=== PATIENT | male | born 1995 | race Caucasian/White ===

== ENCOUNTER 2018-04-04 22:57 | Emergency (ER) | payer BC ==
--- NOTE | 2018-04-04 23:04 | ED ---
General Adult HPI - General Chief complaint: Recheck/Abnormal Lab/Rx Stated complaint: DIZZINESS,VOMITING,ENT Time Seen by Provider: 04/04/18 23:04 Source: patient Mode of arrival: ambulatory Limitations: no limitations - History of Present Illness Initial comments: Yosi Kumar is a 23 yo male with no PMH who presents to the ED for evaluation of 4 days of feeling unwell. Patient reports generalized malaise, body aches, subjective fevers, chills, nausea, decreased oral intake, non-productive cough and headache. She reports that his children had runny and stuffy nose with fever last week, he reports that on Tuesday he began to feel unwell. He reports that he has been trying to drink fluids but has had no appetite. He hasn't taken any medications for his symptoms. He came to the ER today concerned about missing work due to his symptoms. - Related Data Home Medications Medication Instructions Recorded Confirmed Dextroamphetamine/Amphetamine 30 mg PO QAM 04/16/17 04/04/18 [Adderall Xr] Ibuprofen [Motrin] 800 mg PO Q8H PRN 04/16/17 04/04/18 Allergies Allergy/AdvReac Type Severity Reaction Status Date / Time meloxicam [From Mobic] Allergy Rash/Hives Verified 04/04/18 23:21 Penicillins Allergy Anaphylaxis Verified 04/04/18 23:21 Review of Systems ROS Statement: Those systems with pertinent positive or pertinent negative responses have been documented in the HPI. ROS Other: All systems not noted in ROS Statement are negative. Constitutional: Reports: fever, chills Eyes: Denies: eye pain ENT: Reports: throat pain Respiratory: Reports: cough. Denies: dyspnea Cardiovascular: Denies: chest pain, palpitations Endocrine: Reports: fatigue Gastrointestinal: Reports: nausea Genitourinary: Denies: urgency, dysuria Musculoskeletal: Reports: myalgia. Denies: back pain Skin: Denies: rash Neurological: Reports: headache Past Medical History Past Medical History: No Reported History History of Any Multi-Drug Resistant Organisms: None Reported Past Surgical History: No Surgical Hx Reported Past Psychological History: ADD/ADHD Smoking Status: Current every day smoker Past Alcohol Use History: None Reported Past Drug Use History: None Reported General Exam - General Exam Comments Initial Comments: Physical Exam GENERAL: Patient is well-developed and well-nourished. Patient is nontoxic and well- hydrated and is in no distress. HENT: Normocephalic, Atraumatic. EYES: PERRL, EOMI PULMONARY: Unlabored respirations. No audible rales rhonchi or wheezing was noted. CARDIOVASCULAR: There is a regular rate and rhythm without any murmurs gallops or rubs. ABDOMEN: Soft and nontender with normal bowel sounds. SKIN: Skin is clear with no lesions or rashes and otherwise unremarkable. : Deferred NEUROLOGIC: Patient is alert and oriented x3. Moving all extremities spontaneously MUSCULOSKELETAL: Normal extremities with adequate strength and full range of motion. No lower extremity swelling or edema. No calf tenderness. PSYCHIATRIC: Normal psychiatric evaluation. Limitations: no limitations Limitations: no limitations Course Vital Signs 04/04/18 04/05/18 22:59 01:16 Temperature 98.7 F 98.3 F Pulse Rate 107 H 86 Respiratory 18 16 Rate Blood Pressure 137/80 133/83 O2 Sat by Pulse 99 100 Oximetry Medical Decision Making - Medical Decision Making Patient was seen and evaluated, history was obtained from the patient Patient with multiple complaints, generalized malaise, body aches for a few days duration, appears dehydrated Patient has not ever received her influenza vaccination due to history of his father having a serious ALLERGY to such. Labs and x-ray were ordered Labs with mildly elevated creatinine kinase, no other significant abnormalities appreciated Chest x-ray with no evidence of pneumonia Influenza was negative At this point I suspect the patient has a viral illness, I discussed this with him, I discussed the importance of oral rehydration therapy, alternating Tylenol and Motrin for pain and fever management. Return parameters were discussed and the patient was discharged home in stable condition. - Lab Data Result diagrams: 04/05/18 00:16 04/05/18 00:16 Lab Results 04/05/18 04/05/18 04/05/18 Range/Units 00:16 00:16 00:20 WBC 10.6 (3.8-10.6) k/uL RBC 5.54 (4.30-5.90) m/uL Hgb 16.5 (13.0-17.5) gm/dL Hct 48.7 (39.0-53.0) % MCV 87.9 (80.0-100.0) fL MCH 29.8 (25.0-35.0) pg MCHC 33.9 (31.0-37.0) g/dL RDW 13.3 (11.5-15.5) % Plt Count 274 (150-450) k/uL Neutrophils % 72 % Lymphocytes % 18 % Monocytes % 6 % Eosinophils % 3 % Basophils % 0 % Neutrophils # 7.7 (1.3-7.7) k/uL Lymphocytes # 1.9 (1.0-4.8) k/uL Monocytes # 0.7 (0-1.0) k/uL Eosinophils # 0.3 (0-0.7) k/uL Basophils # 0.0 (0-0.2) k/uL Sodium 140 (137-145) mmol/L Potassium 4.6 (3.5-5.1) mmol/L Chloride 103 (98-107) mmol/L Carbon Dioxide 24 (22-30) mmol/L Anion Gap 13 mmol/L BUN 12 (9-20) mg/dL Creatinine 0.77 (0.66-1.25) mg/dL Est GFR (CKD-EPI)AfAm >90 (>60 ml/min/1.73 sqM) Est GFR (CKD-EPI)NonAf >90 (>60 ml/min/1.73 sqM) Glucose 100 H (74-99) mg/dL Calcium 10.2 (8.4-10.2) mg/dL Total Bilirubin 0.6 (0.2-1.3) mg/dL AST 42 (17-59) U/L ALT 79 H (21-72) U/L Alkaline Phosphatase 106 (38-126) U/L Creatine Kinase 235 H (55-170) U/L Total Protein 8.5 H (6.3-8.2) g/dL Albumin 5.0 (3.5-5.0) g/dL Urine Color Yellow Urine Appearance Clear (Clear) Urine pH 6.0 (5.0-8.0) Ur Specific [place] 1.023 (1.001-1.035) Urine Protein Trace H (Negative) Urine Glucose (UA) Negative (Negative) Urine Ketones Negative (Negative) Urine Blood Trace H (Negative) Urine Nitrite Negative (Negative) Urine Bilirubin Negative (Negative) Urine Urobilinogen <2.0 (<2.0) mg/dL Ur Leukocyte Esterase Negative (Negative) Urine RBC 4 (0-5) /hpf Urine WBC 2 (0-5) /hpf Urine Mucus Many H (None) /hpf Influenza Type A RNA (Not Detectd) Influenza Type B (PCR) (Not Detectd) 04/05/18 Range/Units 00:20 WBC (3.8-10.6) k/uL RBC (4.30-5.90) m/uL Hgb (13.0-17.5) gm/dL Hct (39.0-53.0) % MCV (80.0-100.0) fL MCH (25.0-35.0) pg MCHC (31.0-37.0) g/dL RDW (11.5-15.5) % Plt Count (150-450) k/uL Neutrophils % % Lymphocytes % % Monocytes % % Eosinophils % % Basophils % % Neutrophils # (1.3-7.7) k/uL Lymphocytes # (1.0-4.8) k/uL Monocytes # (0-1.0) k/uL Eosinophils # (0-0.7) k/uL Basophils # (0-0.2) k/uL Sodium (137-145) mmol/L Potassium (3.5-5.1) mmol/L Chloride (98-107) mmol/L Carbon Dioxide (22-30) mmol/L Anion Gap mmol/L BUN (9-20) mg/dL Creatinine (0.66-1.25) mg/dL Est GFR (CKD-EPI)AfAm (>60 ml/min/1.73 sqM) Est GFR (CKD-EPI)NonAf (>60 ml/min/1.73 sqM) Glucose (74-99) mg/dL Calcium (8.4-10.2) mg/dL Total Bilirubin (0.2-1.3) mg/dL AST (17-59) U/L ALT (21-72) U/L Alkaline Phosphatase (38-126) U/L Creatine Kinase (55-170) U/L Total Protein (6.3-8.2) g/dL Albumin (3.5-5.0) g/dL Urine Color Urine Appearance (Clear) Urine pH (5.0-8.0) Ur Specific [place] (1.001-1.035) Urine Protein (Negative) Urine Glucose (UA) (Negative) Urine Ketones (Negative) Urine Blood (Negative) Urine Nitrite (Negative) Urine Bilirubin (Negative) Urine Urobilinogen (<2.0) mg/dL Ur Leukocyte Esterase (Negative) Urine RBC (0-5) /hpf Urine WBC (0-5) /hpf Urine Mucus (None) /hpf Influenza Type A RNA Not Detected (Not Detectd) Influenza Type B (PCR) Not Detected (Not Detectd) Disposition Clinical Impression: Viral illness Disposition: HOME SELF-CARE Condition: Good Instructions: Viral Syndrome (ED) Is patient prescribed a controlled substance at d/c from ED?: No Referrals: Dayanna Meredith DO [Primary Care Provider] - 1-2 days
[2018-04-04] MEDS ORDERED: SODIUM CHLORIDE 0.9% 2,000 ML IV ONE (23:25)
--- NOTE | 2018-04-05 00:07 | XR ---
EXAMINATION TYPE: XR chest 2V DATE OF EXAM: 04/04/2018 COMPARISON: 04/16/2017 HISTORY: Fever and dizziness TECHNIQUE: Frontal and lateral views of the chest are obtained. FINDINGS: Heart and mediastinum are normal. Lungs are clear. Diaphragm is normal. Bony thorax appear s normal. IMPRESSION: Normal chest. No change.
[2018-04-05 00:30] LABS: Basophils % (A) 0 %; Eosinophils # (A) 0.3 k/uL (0-0.7); Eosinophils % (A) 3 %; HCT 48.7 % (39.0-53.0); HGB 16.5 gm/dL (13.0-17.5); Lymphocytes # (A) 1.9 k/uL (1.0-4.8); Lymphocytes % (A) 18 %; MCH 29.8 pg (25.0-35.0); MCHC 33.9 g/dL (31.0-37.0); MCV 87.9 fL (80.0-100.0); Mean Platelet Volume 6.8; Monocytes # (A) 0.7 k/uL (0-1.0); Monocytes % (A) 6 %; Neutrophils # (A) 7.7 k/uL (1.3-7.7); Neutrophils % (A) 72 %; Platelet Count 274 k/uL (150-450); RBC 5.54 m/uL (4.30-5.90); RDW 13.3 % (11.5-15.5); WBC 10.6 k/uL (3.8-10.6)
[2018-04-05 00:38] LABS: Appearance,Urine Clear (Clear); Bilirubin,Urine Negative (Negative); Blood,Urine Trace (Negative); Color,Urine Yellow; Glucose,Urine (UA) Negative (Negative); Ketones,Urine Negative (Negative); Leukocyte Esterase,Urine Negative (Negative); Mucus,Urine Many /hpf; Nitrite,Urine Negative (Negative); Protein,Urine Trace (Negative); RBC,Urine 4 /hpf (0-5); Specific Gravity,Urine 1.023 (1.001-1.035); Urobilinogen,Urine <2.0 mg/dL (<2.0); WBC,Urine 2 /hpf (0-5)
[2018-04-05 00:39] LABS: ALT 79 U/L (21-72); AST 42 U/L (17-59); Alkaline Phosphatase 106 U/L (38-126); Anion Gap 13 mmol/L; Blood Urea Nitrogen 12 mg/dL (9-20); Calcium 10.2 mg/dL (8.4-10.2); Carbon Dioxide 24 mmol/L (22-30); Chloride 103 mmol/L (98-107); Creatine Kinase 235 U/L (55-170); Glucose 100 mg/dL (74-99); Potassium 4.6 mmol/L (3.5-5.1); Sodium 140 mmol/L (137-145); Total Bilirubin 0.6 mg/dL (0.2-1.3); Total Protein 8.5 g/dL (6.3-8.2)
[2018-04-05 01:54] VITALS: BP 138/89; PULSE 98; RESP 18; TEMP 99.9
== END 2018-04-05 01:53 | disposition home or self-care (01) ==
LOC: EC 22:57
DX: B34.9 Viral infection, unspecified (principal); R74.8 Abnormal levels of other serum enzymes; F90.9 Attention-deficit hyperactivity disorder, unspecified type; F17.200 Nicotine dependence, unspecified, uncomplicated; Z88.0 Allergy status to penicillin; Z88.6 Allergy status to analgesic agent; Z79.899 Other long term (current) drug therapy
CPT/HCPCS: 36415; 71046; 80053; 81001; 82550; 85025; 87502; 96360; 99284

== ENCOUNTER 2018-05-08 17:34 | Emergency (ER) | payer BC ==
[2018-05-08 18:25] VITALS: RESP 18
[2018-05-08 18:57] LABS: Basophils # (A) 0.1 k/uL (0-0.2); Basophils % (A) 1 %; Eosinophils # (A) 0.1 k/uL (0-0.7); Eosinophils % (A) 1 %; HGB 16.3 gm/dL (13.0-17.5); Lymphocytes # (A) 3.5 k/uL (1.0-4.8); Lymphocytes % (A) 50 %; MCH 29.6 pg (25.0-35.0); MCHC 33.2 g/dL (31.0-37.0); MCV 89.1 fL (80.0-100.0); Monocytes # (A) 0.3 k/uL (0-1.0); Monocytes % (A) 4 %; Neutrophils # (A) 2.4 k/uL (1.3-7.7); Neutrophils % (A) 35 %; Platelet Count 220 k/uL (150-450); RDW 13.5 % (11.5-15.5); WBC 6.9 k/uL (3.8-10.6)
[2018-05-08 19:05] LABS: Appearance,Urine Clear (Clear); Bilirubin,Urine Negative (Negative); Blood,Urine Negative (Negative); Color,Urine Yellow; Glucose,Urine (UA) Negative (Negative); Ketones,Urine Negative (Negative); Leukocyte Esterase,Urine Negative (Negative); Nitrite,Urine Negative (Negative); PH, Urine 5.5 (5.0-8.0); Protein,Urine Negative (Negative); Specific Gravity,Urine 1.021 (1.001-1.035); Urobilinogen,Urine <2.0 mg/dL (<2.0)
[2018-05-08 19:08] LABS: ALT 205 U/L (21-72); AST 119 U/L (17-59); Albumin 4.5 g/dL (3.5-5.0); Alkaline Phosphatase 211 U/L (38-126); Amylase 94 U/L (30-110); Anion Gap 11 mmol/L; Blood Urea Nitrogen 14 mg/dL (9-20); Calcium 9.6 mg/dL (8.4-10.2); Carbon Dioxide 24 mmol/L (22-30); Chloride 106 mmol/L (98-107); Glucose 99 mg/dL (74-99); Lipase 44 U/L (23-300); Potassium 4.5 mmol/L (3.5-5.1); Sodium 141 mmol/L (137-145); Total Bilirubin 0.6 mg/dL (0.2-1.3); Total Protein 8.1 g/dL (6.3-8.2)
--- NOTE | 2018-05-08 19:16 | XR ---
EXAMINATION TYPE: XR KUB DATE OF EXAM: 05/08/2018 COMPARISON: NONE HISTORY: Abdominal pain TECHNIQUE: 2 views upright FINDINGS: Bowel gas pattern is normal. There is no sign of intestinal obstruction or pneumoperitoneum . Fecal pattern is normal. Lung bases are clear. There are no pathologic calcifications over the kidn eys. IMPRESSION: Nonacute abdomen.
[2018-05-08 19:46] VITALS: BP 158/81; PULSE 112; TEMP 102.1
--- NOTE | 2018-05-08 19:50 | ED ---
Abdominal Pain HPI - General Chief Complaint: Abdominal Pain Stated Complaint: Congestion/blood in urine Time Seen by Provider: 05/08/18 19:16 Source: patient, RN notes reviewed, old records reviewed Mode of arrival: ambulatory Limitations: no limitations - History of Present Illness Initial Comments: This is a 23-year-old male the ER for evaluation. Patient is multiple complaints mainly bilateral at back pain flank pain. Increased cough and congestion with fever. Patient has history of back pain chronic. Patient states the symptoms of been on and off for about a month and usually was seen here in the ER about a month ago for the same. MD Complaint: abdominal pain -: month(s) (1) Location: L flank, R flank Radiation: back Migration to: L flank, R flank, bilateral flank Quality: aching Consistency: constant Improves With: nothing Worsens With: movement Treatments Prior to Arrival: NSAIDs - Related Data Home Medications Medication Instructions Recorded Confirmed Dextroamphetamine/Amphetamine 30 mg PO QAM 04/16/17 05/08/18 [Adderall Xr] Ibuprofen [Motrin] 800 mg PO Q8H PRN 04/16/17 05/08/18 Albuterol Inhaler [Ventolin Hfa 2 puff INHALATION RT-Q6H PRN 05/08/18 05/08/18 Inhaler] Benzonatate [Tessalon Perles] 100 mg PO TID PRN 05/08/18 05/08/18 Allergies Allergy/AdvReac Type Severity Reaction Status Date / Time meloxicam [From Mobic] Allergy Rash/Hives Verified 05/08/18 20:08 Penicillins Allergy Anaphylaxis Verified 05/08/18 20:08 Review of Systems ROS Statement: Those systems with pertinent positive or pertinent negative responses have been documented in the HPI. ROS Other: All systems not noted in ROS Statement are negative. Past Medical History Past Medical History: No Reported History History of Any Multi-Drug Resistant Organisms: None Reported Past Surgical History: No Surgical Hx Reported Past Psychological History: ADD/ADHD Smoking Status: Current every day smoker Past Alcohol Use History: None Reported Past Drug Use History: None Reported General Exam Limitations: no limitations General appearance: alert, in no apparent distress Head exam: Present: atraumatic, normocephalic, normal inspection Eye exam: Present: normal appearance, PERRL, EOMI. Absent: scleral icterus, conjunctival injection, periorbital swelling ENT exam: Present: normal exam, mucous membranes moist Neck exam: Present: normal inspection. Absent: tenderness, meningismus, lymphadenopathy Respiratory exam: Present: normal lung sounds bilaterally. Absent: respiratory distress, wheezes, rales, rhonchi, stridor Cardiovascular Exam: Present: normal rhythm, tachycardia, normal heart sounds. Absent: systolic murmur, diastolic murmur, rubs, gallop, clicks GI/Abdominal exam: Present: soft, normal bowel sounds. Absent: distended, tenderness, guarding, rebound, rigid Extremities exam: Present: normal inspection, full ROM, normal capillary refill. Absent: tenderness, pedal edema, joint swelling, calf tenderness Back exam: Present: normal inspection, paraspinal tenderness (muscle). Absent: tenderness (No midline tenderness) Neurological exam: Present: alert, oriented X3, CN II-XII intact Psychiatric exam: Present: normal affect, normal mood Skin exam: Present: warm, dry, intact, normal color. Absent: rash Course Vital Signs 05/08/18 05/08/18 18:20 19:40 Temperature 100.2 F H 102.1 F H Pulse Rate 107 H 112 H Respiratory 18 18 Rate Blood Pressure 135/88 158/81 O2 Sat by Pulse 97 Oximetry - Reevaluation(s) Reevaluation #1: 05/08/18 20:14 Medical record is reviewed Patient is in no acute discomfort. Patient states his pain is in his back which is pain that he always has Patient states he is improved with fever control and hydration This is with patient possibility of epidural infection, patient returned back pain worsens or fever increase Medical Decision Making - Medical Decision Making 3 male the ER with persistent fever times one month, fever is episodic patient also with back pain cough and congestion, runny nose. Patient is afebrile here in the ER, back pain is not worse and is normal with no neurological deficit no new trauma. Patient denies IV drug abuse, denies recent tattoos, ultrasound x- ray negative. Patient will be discharged home - Lab Data Result diagrams: 05/08/18 18:40 05/08/18 18:40 Lab Results 05/08/18 05/08/18 05/08/18 Range/Units 18:40 18:40 18:40 WBC 6.9 (3.8-10.6) k/uL RBC 5.50 (4.30-5.90) m/uL Hgb 16.3 (13.0-17.5) gm/dL Hct 49.0 (39.0-53.0) % MCV 89.1 (80.0-100.0) fL MCH 29.6 (25.0-35.0) pg MCHC 33.2 (31.0-37.0) g/dL RDW 13.5 (11.5-15.5) % Plt Count 220 (150-450) k/uL Neutrophils % 35 % Lymphocytes % 50 % Monocytes % 4 % Eosinophils % 1 % Basophils % 1 % Neutrophils # 2.4 (1.3-7.7) k/uL Lymphocytes # 3.5 (1.0-4.8) k/uL Monocytes # 0.3 (0-1.0) k/uL Eosinophils # 0.1 (0-0.7) k/uL Basophils # 0.1 (0-0.2) k/uL Sodium 141 (137-145) mmol/L Potassium 4.5 (3.5-5.1) mmol/L Chloride 106 (98-107) mmol/L Carbon Dioxide 24 (22-30) mmol/L Anion Gap 11 mmol/L BUN 14 (9-20) mg/dL Creatinine 0.79 (0.66-1.25) mg/dL Est GFR (CKD-EPI)AfAm >90 (>60 ml/min/1.73 sqM) Est GFR (CKD-EPI)NonAf >90 (>60 ml/min/1.73 sqM) Glucose 99 (74-99) mg/dL Calcium 9.6 (8.4-10.2) mg/dL Total Bilirubin 0.6 (0.2-1.3) mg/dL AST 119 H (17-59) U/L ALT 205 H (21-72) U/L Alkaline Phosphatase 211 H (38-126) U/L Total Protein 8.1 (6.3-8.2) g/dL Albumin 4.5 (3.5-5.0) g/dL Amylase 94 (30-110) U/L Lipase 44 (23-300) U/L Urine Color Yellow Urine Appearance Clear (Clear) Urine pH 5.5 (5.0-8.0) Ur Specific [place] 1.021 (1.001-1.035) Urine Protein Negative (Negative) Urine Glucose (UA) Negative (Negative) Urine Ketones Negative (Negative) Urine Blood Negative (Negative) Urine Nitrite Negative (Negative) Urine Bilirubin Negative (Negative) Urine Urobilinogen <2.0 (<2.0) mg/dL Ur Leukocyte Esterase Negative (Negative) - Radiology Data Radiology results: report reviewed (Ultrasound gallbladder x-ray KUB negative for acute disease), image reviewed Disposition Clinical Impression: Fever, Back pain Disposition: HOME SELF-CARE Condition: Good Instructions: Fever in Adults (ED), Viral Syndrome (ED) Is patient prescribed a controlled substance at d/c from ED?: No Referrals: Dayanna Meredith DO [Primary Care Provider] - 1-2 days
--- NOTE | 2018-05-08 20:52 | US ---
EXAMINATION TYPE: US gallbladder DATE OF EXAM: 05/08/2018 COMPARISON: NONE CLINICAL HISTORY: Pain. Pain EXAM MEASUREMENTS: Liver Length: 18.9 cm Gallbladder Wall: 0.3 cm CBD: 0.3 cm Right Kidney: 11.7 x 4.7 x 4.2 cm Pancreas: Obscured by bowel gas Liver: Increased attenuation Gallbladder: No stones seen Evidence for sonographic Sauceda's sign: No CBD: wnl Right Kidney: wnl IMPRESSION: Negative exam. No gallstones or dilated ducts.
== END 2018-05-08 21:15 | disposition home or self-care (01) ==
LOC: EC 17:34
DX: M54.9 Dorsalgia, unspecified (principal); R50.9 Fever, unspecified; R10.9 Unspecified abdominal pain; F90.9 Attention-deficit hyperactivity disorder, unspecified type; F17.200 Nicotine dependence, unspecified, uncomplicated; Z79.899 Other long term (current) drug therapy; Z88.0 Allergy status to penicillin; Z88.6 Allergy status to analgesic agent
CPT/HCPCS: 36415; 74018; 76705; 80053; 81003; 82150; 83690; 85025; 99285

== ENCOUNTER → 2018-05-16 | Outpatient (CLI) | payer BC ==
--- NOTE | 2018-05-16 09:39 | NM ---
Nuclear medicine hepatobiliary scan. HISTORY: Pain. DOSAGE: The patient received 8 ounces of ensure plus and 4.8 mCi of Technetium 99m Choletec. FINDINGS: There is normal hepatic extraction. The gallbladder is seen by 10 minutes. There is bilia ry to bowel clearance by 25 minutes. Ejection fraction is 83%. IMPRESSION: 1. No diagnostic evidence of cholecystitis. 2. Ejection fraction is 83%.
== END | disposition home or self-care (01) ==
LOC: RADNMMAIN 06:51
PROVIDERS: ATTEND Family Medicine
DX: R11.0 Nausea (principal)
CPT/HCPCS: 78226; A9537

== ENCOUNTER 2018-06-01 08:29 | Day surgery (SDC) | payer BC ==
[2018-05-29 16:23] VITALS: BMI 34.1
[~2018-06-01 08:29] MED LIST: CLINDAMYCIN 900 MG in DEXTROSE 5% IN WATER 50 ML IVPB ONE; DEXAMETHASONE SOD PHOSPHATE 10 MG/ML 1 ML VIAL IV ONE; GENTAMICIN 420 MG in SODIUM CHLORIDE 0.9% 100 ML IVPB ONE; HEPARIN SODIUM,PORCINE 5,000 UNIT/ML 1 ML VIAL SQ ONE; LACTATED RINGERS 1,000 ML IV SCH; LIDOCAINE 1% 20 ML VIAL (10MG/ML) FOR IV START INTRADERMA PRN; MIDAZOLAM (PF) 2 MG/2 ML VIAL IV PRN; ONDANSETRON 4 MG/2 ML VIAL IVP ONE
--- NOTE | 2018-06-01 10:02 | P.GSHP ---
History of Present Illness H&P Date: 06/01/18 Chief Complaint: Right upper quadrant pain This is a 23-year-old male presents today for laparoscopic cholecystectomy. Patient's had complaints of right upper quadrant pain. His recent HIDA scan shows an elevated ejection fraction consistent with biliary hyperkinesia's and chronic cholecystitis. Past Medical History Past Medical History: Osteoarthritis (OA) Additional Past Medical History / Comment(s): STATES ARTHRITIS IN BACK, ? ASTHMA - STATES DR UNSURE., CONSTIPATION, STATES HAVING ABDOMINAL PAIN WITH NAUSEA & VOMITING. History of Any Multi-Drug Resistant Organisms: None Reported Past Surgical History: No Surgical Hx Reported Additional Past Anesthesia/Blood Transfusion Reaction / Comment(s): NO ANESTHESIA HX. Past Psychological History: ADD/ADHD Smoking Status: Current every day smoker Past Alcohol Use History: None Reported Additional Past Alcohol Use History / Comment(s): SMOKES 1/2 PPD. SMOKING SINCE 12 YEARS OLD. Past Drug Use History: None Reported - Past Family History Mother Family Medical History: No Reported History Medications and Allergies Home Medications Medication Instructions Recorded Confirmed Type Dextroamphetamine/Amphetamine 30 mg PO QAM 04/16/17 06/01/18 History [Adderall Xr] Ibuprofen [Motrin] 800 mg PO Q8H PRN 04/16/17 05/29/18 History Ondansetron [Zofran] 4 mg PO Q6HR PRN 05/29/18 05/29/18 History Allergies Allergy/AdvReac Type Severity Reaction Status Date / Time meloxicam [From Mobic] Allergy Rash/Hives Verified 06/01/18 08:41 Penicillins Allergy Anaphylaxis Verified 06/01/18 08:41 Surgical - Exam Vital Signs Temp Pulse Resp BP Pulse Ox 98.0 F 91 16 136/63 97 06/01/18 08:55 06/01/18 08:55 06/01/18 08:55 06/01/18 08:55 06/01/18 08:55 - General well developed, well nourished, no distress - Eyes PERRL - ENT normal pinna - Neck no masses - Respiratory normal expansion - Cardiovascular Rhythm: regular - Abdomen Abdomen: soft, non tender Assessment and Plan Assessment: Right quadrant pain Chronic cholecystitis We'll perform laparoscopic cholecystectomy
[2018-06-01] MEDS ORDERED: BUPIVACAIN-EPI 0.25%-1:200,000 30 ML VIAL SQ ONE (10:22)
[2018-06-01] MEDS ORDERED: fentaNYL (PF) 50 MCG/ML 2 ML AMP ONE (10:27)
[2018-06-01] MEDS ORDERED: LIDOCAINE 1% INJ 10MG/ML (20 ML MDV) ONE (10:27)
[2018-06-01] MEDS ORDERED: NEOSTIGMINE 1 MG/ML 10 ML VIAL ONE (10:27)
[2018-06-01] MEDS ORDERED: MIDAZOLAM 2 MG/2 ML VIAL ONE (10:27)
[2018-06-01] MEDS ORDERED: SUCCINYLCHOLINE CHLORIDE 100 MG/5 ML SYR IV ONE (10:27)
[2018-06-01] MEDS ORDERED: GLYCOPYRROLATE 0.2 MG/ML 2 ML VIAL ONE (10:27)
[2018-06-01] MEDS ORDERED: HYDROmorphone (PF) 1 MG/ML ONE (10:27)
[2018-06-01] MEDS ORDERED: ROCURONIUM BROMIDE 10 MG/ML 10 ML VIAL IV ONE (10:27)
[2018-06-01] MEDS ORDERED: PROPOFOL 10 MG/ML 20 ML VIAL IV ONE (10:27)
[2018-06-01 11:30] VITALS: TEMP 97
[2018-06-01] MEDS: fentaNYL (PF) 50 MCG/ML 2 ML AMP IV PRN ×2 (12:03→12:08)
[2018-06-01 12:29] VITALS: RESP 18
--- NOTE | 2018-06-01 12:35 | P.OP ---
Date of Procedure: 06/01/18 Preoperative Diagnosis: Cholecystitis Postoperative Diagnosis: Cholecystitis Procedure(s) Performed: Laparoscopic cholecystectomy Anesthesia: MELISSA Surgeon: Alexandre Peterson Estimated Blood Loss (ml): 5 Pathology: other (gAll bladder) Condition: stable Disposition: PACU Description of Procedure: The patient was placed on the operating table. The patient received a general endotracheal tube anesthesia. The patients abdomen was prepped and draped in the usual sterile fashion. Through an infraumbilical stab incision, the fascia of the anterior abdominal wall was grasped with a pair of Kochers and then the Veress needle was placed in the peritoneal cavity. Position of the Veress needle was confirmed with positive drop test. The abdomen was then insufflated. After adequate insufflation, the 10 mm trocar was placed in the peritoneal cavity. Following this the laparoscope was placed in the peritoneal cavity. The patient was placed in the head-up, right side up position and then a 5 mm trocar was placed in the right lateral and right subcostal position under direct visualization. A 8 mm trocar was placed in the epigastric position. The gallbladder was grasped in the fundus and infundibulum. Traction on the gallbladder was placed in the lateral and the cephalad positions. The triangle of Calot was visualized.. The cystic duct was bluntly dissected until the union of the cystic duct and common bile duct was seen. The cystic duct was then divided and sealed with the Harmonic scissors. A PDS Endoloop was then placed throughout the cystic duct stump. The cystic artery divided and sealed with the Harmonic scissors. The gallbladder was then removed from the liver bed using Harmonic scissors. The gallbladder was then extracted through the epigastric port site. Operative field was checked for any bleeding spots and Harmonic scissors was used to coagulate the liver bed. The abdomen was irrigated. The trocars were removed. The skin was closed using interrupted 3-0 Vicryl suture. Dermabond dressing were applied. The patient tolerated the procedure well.
[2018-06-01 12:45] VITALS: BP 122/78; PULSE 92
== END 2018-06-01 13:26 | disposition home or self-care (01) ==
LOC: OR 08:29
PROVIDERS: ATTEND Surgery
DX: K81.9 Cholecystitis, unspecified (principal); M19.90 Unspecified osteoarthritis, unspecified site; F90.9 Attention-deficit hyperactivity disorder, unspecified type; F17.210 Nicotine dependence, cigarettes, uncomplicated; Z79.899 Other long term (current) drug therapy; Z88.6 Allergy status to analgesic agent; Z88.0 Allergy status to penicillin; K81.1 Chronic cholecystitis
CPT/HCPCS: 88304; 47562; J2250; J1644; J1100; J2710; J2405; J2001; J3010; J1580; J1170; J0330; J2704

== ENCOUNTER 2020-01-16 09:39 | Emergency (ER) | payer BC, OTHER ==
[2020-01-16 09:48] VITALS: RESP 18
[2020-01-16] MEDS ORDERED: HYDROcodone/APAP 5-325MG 1 EACH TAB PO STA (10:29)
--- NOTE | 2020-01-16 10:31 | ED ---
General Adult HPI - General Chief complaint: Extremity Injury, Lower Stated complaint: IHS - lt thigh injury Time Seen by Provider: 01/16/20 09:50 Source: patient, RN notes reviewed, old records reviewed Mode of arrival: ambulatory Limitations: no limitations - History of Present Illness Initial comments: Patient is a 24-year-old male presents emergency department today for evaluation for concern for left thigh and knee swelling. Patient reports that 2 weeks ago he was hit by a excavator while at work. He states he initially thought up his primary care doctor whom completed x-rays and have the Patient off of work. His work sent him to an urgent care who cleared him to go back to work. Patient states that he was intended to follow-up with orthopedic in given an MRI but has not been able to follow through with this due to Worker's Comp difficulties. He states that he was concerned because he's had worsening pain and with range of motion of the knee and nerve pain with flexing the knee. He states is feels like his skin is stretching. - Related Data Home Medications Medication Instructions Recorded Confirmed Dextroamphetamine/Amphetamine 30 mg PO QAM 04/16/17 01/16/20 [Adderall Xr] Ibuprofen [Motrin] 800 mg PO QAM 04/16/17 01/16/20 HYDROcodone/APAP 7.5-325MG [[place] 1 tab PO QID PRN 01/16/20 01/16/20 7.5-325] Previous Rx's Medication Instructions Recorded HYDROcodone/APAP 5-325MG [[place] 1 tab PO Q6HR PRN #10 tab 01/16/20 5-325] Allergies Allergy/AdvReac Type Severity Reaction Status Date / Time meloxicam [From Mobic] Allergy Rash/Hives Verified 01/16/20 11:08 Penicillins Allergy Anaphylaxis Verified 01/16/20 11:08 Review of Systems ROS Statement: Those systems with pertinent positive or pertinent negative responses have been documented in the HPI. ROS Other: All systems not noted in ROS Statement are negative. Past Medical History Past Medical History: Asthma, Osteoarthritis (OA) Additional Past Medical History / Comment(s): STATES ARTHRITIS IN BACK, CONSTIPA TION History of Any Multi-Drug Resistant Organisms: None Reported Past Surgical History: Cholecystectomy Additional Past Anesthesia/Blood Transfusion Reaction / Comment(s): NO ANESTHESIA HX. Past Psychological History: ADD/ADHD Smoking Status: Current every day smoker Past Alcohol Use History: Occasional Past Drug Use History: Marijuana - Past Family History Mother Family Medical History: No Reported History General Exam - General Exam Comments Initial Comments: This is a 24-year-old male. Alert and oriented 3. No significant distress. Limitations: no limitations General appearance: alert, in no apparent distress Head exam: Present: atraumatic, normocephalic, normal inspection Eye exam: Present: normal appearance, PERRL, EOMI. Absent: scleral icterus, conjunctival injection, periorbital swelling ENT exam: Present: normal exam, mucous membranes moist Neck exam: Present: normal inspection. Absent: tenderness, meningismus, lymphadenopathy Respiratory exam: Present: normal lung sounds bilaterally. Absent: respiratory distress, wheezes, rales, rhonchi, stridor Cardiovascular Exam: Present: regular rate, normal rhythm, normal heart sounds. Absent: systolic murmur, diastolic murmur, rubs, gallop, clicks GI/Abdominal exam: Present: soft, normal bowel sounds. Absent: distended, tenderness, guarding, rebound, rigid Extremities exam: Present: normal inspection, full ROM, normal capillary refill. Absent: tenderness, pedal edema, joint swelling, calf tenderness Left Upper Leg exam: Present: swelling (over distal quadracep ). Absent: normal inspection, full ROM Knee exam: Present: tenderness. Absent: normal inspection Lower Leg exam: Present: normal inspection, full ROM Foot/Toe exam: Present: normal inspection Neurovascular tendon exam: Present: no vascular compromise Back exam: Present: normal inspection Neurological exam: Present: alert, oriented X3, CN II-XII intact Psychiatric exam: Present: normal affect, normal mood Skin exam: Present: warm, dry, intact, normal color. Absent: rash Course Vital Signs 01/16/20 01/16/20 09:46 11:34 Temperature 99.3 F 97.8 F Pulse Rate 113 H 91 Respiratory 18 18 Rate Blood Pressure 163/98 141/95 O2 Sat by Pulse 98 99 Oximetry Medical Decision Making - Medical Decision Making Patient is a 24-year-old male presents for short stay with left thigh and knee swelling. Patient reports that he was hit by an excavator work 2 weeks ago. He had x-rays at PCPs office was reportedly normal. He reports he is able bear weight but when he has his leg down the swelling seems to be more painful and intense. Patient has normal pulses distally. He reports significant pain with range of motion of the knee. Patient had a computed tomography scan with contrast of the knee. It shows evidence of a significant hematoma over the anterior aspect of the thigh. No evidence of fractures. There is also evidence of a 6.2 bone lesion which was most likely an chondroma. I discussed the Patient needs follow-up with orthopedic for further clearance and possible biopsy for the small lesion. Patient be discharged at this time with a short course of pain medication. Advise close follow-up with or so for further clearance back to work. Given a note until that time. Patient is given a knee immobilizer and stated that this is too uncomfortable to wear. Advised to use it while at home. - Lab Data Result diagrams: 01/16/20 10:44 01/16/20 10:44 Lab Results 01/16/20 01/16/20 01/16/20 Range/Units 10:44 10:44 10:44 WBC 6.7 (3.8-10.6) k/uL RBC 5.23 (4.30-5.90) m/uL Hgb 15.5 (13.0-17.5) gm/dL Hct 46.9 (39.0-53.0) % MCV 89.8 (80.0-100.0) fL MCH 29.6 (25.0-35.0) pg MCHC 33.0 (31.0-37.0) g/dL RDW 13.1 (11.5-15.5) % Plt Count 309 (150-450) k/uL Neutrophils % 48 % Lymphocytes % 41 % Monocytes % 6 % Eosinophils % 3 % Basophils % 1 % Neutrophils # 3.2 (1.3-7.7) k/uL Lymphocytes # 2.7 (1.0-4.8) k/uL Monocytes # 0.4 (0-1.0) k/uL Eosinophils # 0.2 (0-0.7) k/uL Basophils # 0.0 (0-0.2) k/uL PT 9.8 (9.0-12.0) sec INR 0.9 (<1.2) APTT 24.3 (22.0-30.0) sec Sodium 139 (137-145) mmol/L Potassium 4.7 (3.5-5.1) mmol/L Chloride 107 (98-107) mmol/L Carbon Dioxide 23 (22-30) mmol/L Anion Gap 9 mmol/L BUN 13 (9-20) mg/dL Creatinine 0.84 (0.66-1.25) mg/dL Est GFR (CKD-EPI)AfAm >90 (>60 ml/min/1.73 sqM) Est GFR (CKD-EPI)NonAf >90 (>60 ml/min/1.73 sqM) Glucose 110 H (74-99) mg/dL Calcium 10.3 H (8.4-10.2) mg/dL Total Bilirubin 0.4 (0.2-1.3) mg/dL AST 49 (17-59) U/L ALT 99 H (4-49) U/L Alkaline Phosphatase 85 (38-126) U/L Total Protein 7.6 (6.3-8.2) g/dL Albumin 4.8 (3.5-5.0) g/dL - Radiology Data Radiology results: report reviewed CC knee with contrast shows a thin walled fluid collection anterior distal femoral level presumed related to recent injury. No acute fracture dislocation. No intramuscular vascular injury noted. There is a 6. fourth distal femoral diaphyseal chondroid lesion fever nonaggressive etiology such as endocrine neuroma however due to size more aggressive etiologies such chondrosarcoma is not entirely excluded. Follow up advised espiecial if pat has pain not related to trauma to this level. Disposition Clinical Impression: Thigh hematoma, Lesion of femur Disposition: HOME SELF-CARE Condition: Good Instructions (If sedation given, give patient instructions): Hematoma (ED) Additional Instructions: Please use medication as discussed. Follow up with orthopedic tomorrow. Please return to the emergency room if your symptoms increase or worsen or for any other concerns. Prescriptions: HYDROcodone/APAP 5-325MG [[place] 5-325] 1 tab PO Q6HR PRN #10 tab PRN Reason: Pain Is patient prescribed a controlled substance at d/c from ED?: Yes If prescribed controlled substance>3 days was MAPS reviewed?: Prescribed <3 Days If opioid is for acute pain is fill amount 7 days or less?: Yes If Rx opioid, was Start Talking consent form obtained?: Yes Referrals: Dayanna Meredith DO [Primary Care Provider] - 1-2 days Gamal Jasso DO [Doctor of Osteopathic Medicine] - 1-2 days Time of Disposition: 12:02
[2020-01-16 11:07] LABS: Basophils % (A) 1 %; Eosinophils # (A) 0.2 k/uL (0-0.7); Eosinophils % (A) 3 %; HCT 46.9 % (39.0-53.0); HGB 15.5 gm/dL (13.0-17.5); Lymphocytes # (A) 2.7 k/uL (1.0-4.8); Lymphocytes % (A) 41 %; MCH 29.6 pg (25.0-35.0); MCV 89.8 fL (80.0-100.0); Mean Platelet Volume 7.4; Monocytes # (A) 0.4 k/uL (0-1.0); Monocytes % (A) 6 %; Neutrophils # (A) 3.2 k/uL (1.3-7.7); Neutrophils % (A) 48 %; Platelet Count 309 k/uL (150-450); RBC 5.23 m/uL (4.30-5.90); RDW 13.1 % (11.5-15.5); WBC 6.7 k/uL (3.8-10.6)
[2020-01-16 11:15] LABS: ALT 99 U/L (4-49); AST 49 U/L (17-59); African American GFR (CKD) >90 (>60 ml/min/1.73 sqM); Albumin 4.8 g/dL (3.5-5.0); Alkaline Phosphatase 85 U/L (38-126); Anion Gap 9 mmol/L; Blood Urea Nitrogen 13 mg/dL (9-20); Calcium 10.3 mg/dL (8.4-10.2); Carbon Dioxide 23 mmol/L (22-30); Chloride 107 mmol/L (98-107); Glucose 110 mg/dL (74-99); Non-African American GFR(CKD) >90 (>60 ml/min/1.73 sqM); Potassium 4.7 mmol/L (3.5-5.1); Sodium 139 mmol/L (137-145); Total Bilirubin 0.4 mg/dL (0.2-1.3); Total Protein 7.6 g/dL (6.3-8.2)
--- NOTE | 2020-01-16 11:22 | CT ---
EXAMINATION TYPE: CT knee LT w con DATE OF EXAM: 01/16/2020 COMPARISON: None. HISTORY: Left distal femur injury and hematoma. Persistent pain and swelling after recent injury. CT DLP: 309.7 mGycm Automated exposure control for dose reduction was used. CONTRAST: Performed with IV Contrast, patient injected with 100ml mL of Isovue 300. FINDINGS: No acute fracture or dislocation in the left knee. Tricompartment joint spaces are preserved. No significant joint effusion. No popliteal cyst. Patency of the distal superficial femoral artery an d popliteal artery with successful visualization of bifurcation and trifurcation. No injury. There is moderate superficial infrapatellar ill-defined fluid. There is more prominent thin-walled fl uid collection in the superior prepatellar space measuring roughly 11 to 12 cm transversely axial tangela ge 60. Craniocaudal length roughly 16 16 cm sagittal image 31. All fluid is superficial to the anteri or muscles. There is some more mild to moderate ill-defined surrounding fluid noted. Fluid more promi nent medial to the midline. Within the distal femoral diaphysis there is an oval 6.4 cm intramedullary lesion with calcifications along the periphery. No bony destruction or adjacent soft tissue mass. Suspect nonaggressive etiology such as enchondroma. IMPRESSION: 1. Thin-walled fluid collection anterior distal femoral level presumed related to recent injury. No a cute fracture or dislocation. No intramuscular or vascular injury. 2. There is 6.4 cm distal femoral diaphyseal chondroid lesion favor nonaggressive etiology such as en chondroma however due to size more aggressive etiologies such as chondrosarcoma is not entirely exclu ded. Follow-up advised especially if patient has pain not related to trauma localized to this level.
[2020-01-16 11:29] LABS: INR 0.9 (<1.2); Prothrombin Time 9.8 sec (9.0-12.0)
[2020-01-16 11:30] LABS: Partial Thromboplastin Time 24.3 sec (22.0-30.0)
[2020-01-16 11:37] VITALS: BP 141/95; PULSE 91; TEMP 97.8
[2020-01-16] MEDS ORDERED: ACET/COD 300 MG/30 MG STARTER PACK 6 TAB BTL PO STA (12:12)
== END 2020-01-16 12:20 | disposition home or self-care (01) ==
LOC: EC 09:39
DX: S70.12XA Contusion of left thigh, initial encounter (principal); M89.9 Disorder of bone, unspecified; F90.9 Attention-deficit hyperactivity disorder, unspecified type; M19.90 Unspecified osteoarthritis, unspecified site; F17.200 Nicotine dependence, unspecified, uncomplicated; Z79.899 Other long term (current) drug therapy; Z79.1 Long term (current) use of non-steroidal anti-inflammatories (NSAID); Z88.0 Allergy status to penicillin; Z88.6 Allergy status to analgesic agent; W22.8XXA Striking against or struck by other objects, initial encounter; Y93.89 Activity, other specified; Y92.69 Other specified industrial and construction area as the place of occurrence of the external cause; Y99.0 Civilian activity done for income or pay
CPT/HCPCS: 36415; 80053; 85025; 85610; 85730; 73701; 99284; Q9967

== ENCOUNTER → 2020-03-26 | Outpatient (CLI) | payer OTHER | END | disposition home or self-care (01) | LOC: LABWHC1 10:51 | PROVIDERS: ATTEND Orthopaedic Surgery | DX: S70.12XD Contusion of left thigh, subsequent encounter (principal); M79.652 Pain in left thigh; M25.562 Pain in left knee; M25.462 Effusion, left knee; L76.34 Postprocedural seroma of skin and subcutaneous tissue following other procedure; M89.8X5 Other specified disorders of bone, thigh | CPT/HCPCS: 87070; 87075; 87205 ==

== ENCOUNTER 2020-08-06 19:46 | Emergency (ER) | payer BC, OTHER ==
[2020-08-06] MEDS ORDERED: CLINDAMYCIN 150 MG CAP PO STA (19:56)
[2020-08-06] MEDS ORDERED: ACET/COD 300 MG/30 MG STARTER PACK 6 TAB BTL PO STA (19:56)
[2020-08-06 19:58] VITALS: BP 150/97; PULSE 108; RESP 20; TEMP 98.3
--- NOTE | 2020-08-06 19:58 | ED ---
ENT HPI - General Stated complaint: Face swelling Time Seen by Provider: 08/06/20 19:50 Source: patient, RN notes reviewed Mode of arrival: ambulatory Limitations: no limitations - History of Present Illness Initial comments: 25 year old male presents emergency Department with chief complaint of right- sided facial swelling. Patient states that he's had recurrent dental infections he states he saw dentist yesterday who wanted to pull his molar but states they did not feel comfortable with them. Patient states his been on 2 rounds of antibiotics states most recent and bright was azithromycin. He has not appointment with dentist on Tuesday. Patient denies any difficulty swallowing patient states there is mild pain, pressure feeling on the right side. - Related Data Home Medications Medication Instructions Recorded Confirmed Dextroamphetamine/Amphetamine 30 mg PO QAM 04/16/17 01/16/20 [Adderall Xr] Ibuprofen [Motrin] 800 mg PO QAM 04/16/17 01/16/20 HYDROcodone/APAP 7.5-325MG [[place] 1 tab PO QID PRN 01/16/20 01/16/20 7.5-325] Previous Rx's Medication Instructions Recorded HYDROcodone/APAP 5-325MG [[place] 1 tab PO Q6HR PRN #10 tab 01/16/20 5-325] Clindamycin HCl 300 mg PO Q6HR #40 cap 08/06/20 Allergies Allergy/AdvReac Type Severity Reaction Status Date / Time meloxicam [From Mobic] Allergy Rash/Hives Verified 08/06/20 19:58 Penicillins Allergy Anaphylaxis Verified 08/06/20 19:58 Review of Systems ROS Statement: Those systems with pertinent positive or pertinent negative responses have been documented in the HPI. ROS Other: All systems not noted in ROS Statement are negative. Past Medical History Past Medical History: Asthma, Osteoarthritis (OA) Additional Past Medical History / Comment(s): STATES ARTHRITIS IN BACK, CONSTIPATION History of Any Multi-Drug Resistant Organisms: None Reported Past Surgical History: Cholecystectomy Additional Past Anesthesia/Blood Transfusion Reaction / Comment(s): NO ANESTHESIA HX. Past Psychological History: ADD/ADHD Smoking Status: Current every day smoker Past Alcohol Use History: Occasional Past Drug Use History: Marijuana - Past Family History Mother Family Medical History: No Reported History General Exam General appearance: alert, in no apparent distress Head exam: Present: atraumatic, normocephalic, normal inspection Eye exam: Present: normal appearance, PERRL, EOMI. Absent: scleral icterus, conjunctival injection, periorbital swelling ENT exam: Present: mucous membranes moist, TM's normal bilaterally, normal external ear exam, other (Right mandibular swelling and mild trismus no tripoding). Absent: normal exam (Dental Meghann #[id number]), normal oropharynx Neck exam: Present: normal inspection, full ROM. Absent: tenderness, meningismus, lymphadenopathy Respiratory exam: Present: normal lung sounds bilaterally. Absent: respiratory distress, wheezes, rales, rhonchi, stridor Cardiovascular Exam: Present: regular rate, normal rhythm, normal heart sounds. Absent: systolic murmur, diastolic murmur, rubs, gallop, clicks GI/Abdominal exam: Present: soft, normal bowel sounds. Absent: distended, tenderness, guarding, rebound, rigid Course Vital Signs 08/06/20 19:51 Temperature 98.3 F Pulse Rate 108 H Respiratory 20 Rate Blood Pressure 150/97 O2 Sat by Pulse 97 Oximetry Medical Decision Making - Medical Decision Making 36 over presented for facial swelling. Patient has dental infection. Patient was given clindamycin will be discharged on clindamycin. Patient has a follow- up appointment on Tuesday. Patient will be discharged stable condition. Disposition Clinical Impression: Dental infection, Pain, dental Disposition: HOME SELF-CARE Condition: Stable Instructions (If sedation given, give patient instructions): Toothache (ED) Additional Instructions: Please return to the Emergency Department if symptoms worsen or any other concerns. Prescriptions: Clindamycin HCl 300 mg PO Q6HR #40 cap Is patient prescribed a controlled substance at d/c from ED?: No Referrals: Dayanna Meredith DO [Primary Care Provider] - 1-2 days Time of Disposition: 19:58
== END 2020-08-06 20:09 | disposition home or self-care (01) ==
LOC: EC 19:46
DX: K04.7 Periapical abscess without sinus (principal); M19.09 Primary osteoarthritis, other specified site; F90.9 Attention-deficit hyperactivity disorder, unspecified type; F17.200 Nicotine dependence, unspecified, uncomplicated; Z79.899 Other long term (current) drug therapy; Z79.1 Long term (current) use of non-steroidal anti-inflammatories (NSAID); Z88.0 Allergy status to penicillin; Z88.6 Allergy status to analgesic agent
CPT/HCPCS: 99283

== ENCOUNTER 2020-08-07 02:57 | Emergency (ER) | payer OTHER ==
[2020-08-07 03:03] VITALS: TEMP 99.6
[2020-08-07] MEDS ORDERED: MORPHINE SULFATE 4 MG/ML SYRINGE IV STA (03:27)
[2020-08-07] MEDS ORDERED: SODIUM CHLORIDE 0.9% 1,000 ML IV STA ×2 (03:27)
[2020-08-07] MEDS ORDERED: DEXAMETHASONE SOD PHOSPHATE 10 MG/ML 1 ML VIAL IV STA (03:28)
[2020-08-07] MEDS ORDERED: KETOROLAC 15 MG/ML 1 ML VIAL IVP STA (03:28)
[2020-08-07] MEDS ORDERED: CLINDAMYCIN 900 MG in DEXTROSE 5% IN WATER 50 ML IVPB STA ×2 (03:28)
--- NOTE | 2020-08-07 03:41 | ED ---
Recheck HPI - General Chief Complaint: Dental/Oral Stated Complaint: Dental Pain Time Seen by Provider: 08/07/20 03:11 Source: patient, family, RN notes reviewed, old records reviewed Mode of arrival: ambulatory Limitations: no limitations - History of Present Illness Initial Comments: This is a 25-year-old male DF for evaluation of dental pain. Patient has history of dental caries seen in ER prior for evaluation. Patient concern for recent development of significant swelling of the right side of his face. No shortness of breath no other complaints no fever patient does have point with dentist for tooth removal MD Complaint: other (Significant swelling or face was started tonight) -: days(s) Returns Today for: persistent/worsening pain related to initial visit Symptoms Since Prior Visit: worsening pain (Worsening swelling) Context: other (Evaluation for significant swelling of recent diagnosis tooth infection) Associated Symptoms: none Treatments Prior to Arrival: other medications, Given Antibiotics on - Related Data Home Medications Medication Instructions Recorded Confirmed Dextroamphetamine/Amphetamine 30 mg PO DAILY 08/13/20 08/13/20 [Dextroamphetamine/Amphetamine ER 30 mg Cap] Previous Rx's Medication Instructions Recorded cefTRIAXone [Rocephin] 2 gm IVPB Q24H #10 bag 08/13/20 metroNIDAZOLE [Flagyl] 500 mg PO TID #30 tab 08/13/20 HYDROcodone/APAP 7.5-325MG [[place] 2 each PO Q6H PRN #12 tab 08/14/20 7.5-325] Ibuprofen [Motrin] 800 mg PO TID PRN #30 tab 08/14/20 Allergies Allergy/AdvReac Type Severity Reaction Status Date / Time meloxicam [From Mobic] Allergy Rash/Hives Verified 08/08/20 18:23 Penicillins Allergy Anaphylaxis Verified 08/08/20 18:23 Review of Systems ROS Statement: Those systems with pertinent positive or pertinent negative responses have been documented in the HPI. ROS Other: All systems not noted in ROS Statement are negative. Past Medical History Past Medical History: Asthma, Osteoarthritis (OA) Additional Past Medical History / Comment(s): STATES ARTHRITIS IN BACK, CONSTIPATION History of Any Multi-Drug Resistant Organisms: None Reported Past Surgical History: Cholecystectomy Additional Past Anesthesia/Blood Transfusion Reaction / Comment(s): NO ANESTHESIA HX. Past Psychological History: ADD/ADHD Smoking Status: Current every day smoker Past Alcohol Use History: Occasional Past Drug Use History: Marijuana - Past Family History Mother Family Medical History: No Reported History General Exam Limitations: no limitations General appearance: alert, in no apparent distress Head exam: Present: atraumatic, normocephalic, normal inspection, other (Patient does have significant swelling of the right side) Eye exam: Present: normal appearance, PERRL, EOMI. Absent: scleral icterus, conjunctival injection, periorbital swelling ENT exam: Present: normal exam, mucous membranes moist Neck exam: Present: normal inspection. Absent: tenderness, meningismus, lym phadenopathy Respiratory exam: Present: normal lung sounds bilaterally. Absent: respiratory distress, wheezes, rales, rhonchi, stridor Cardiovascular Exam: Present: regular rate, normal rhythm, normal heart sounds. Absent: systolic murmur, diastolic murmur, rubs, gallop, clicks GI/Abdominal exam: Present: soft, normal bowel sounds. Absent: distended, tenderness, guarding, rebound, rigid Extremities exam: Present: normal inspection, full ROM, normal capillary refill. Absent: tenderness, pedal edema, joint swelling, calf tenderness Back exam: Present: normal inspection Neurological exam: Present: alert, oriented X3, CN II-XII intact Psychiatric exam: Present: normal affect, normal mood Skin exam: Present: warm, dry, intact, normal color. Absent: rash Course Vital Signs 08/07/20 08/07/20 02:58 05:30 Temperature 99.6 F Pulse Rate 111 H 98 Respiratory 24 18 Rate Blood Pressure 132/85 130/83 O2 Sat by Pulse 97 97 Oximetry - Reevaluation(s) Reevaluation #1: Medical record is reviewed Patient has improved symptoms here in the ER Patient feels better Patient family informed results questions are answered Patient feels good for discharge Medical Decision Making - Medical Decision Making Lasix male history of recurrent or worsening dental abscess. Patient continue follow-up, continue antibiotics and symptom management. - Lab Data Result diagrams: 08/07/20 03:50 08/07/20 03:50 Lab Results 08/07/20 08/07/20 Range/Units 03:50 03:50 WBC 11.2 H (3.8-10.6) k/uL RBC 5.19 (4.30-5.90) m/uL Hgb 15.5 (13.0-17.5) gm/dL Hct 44.7 (39.0-53.0) % MCV 86.1 (80.0-100.0) fL MCH 29.9 (25.0-35.0) pg MCHC 34.7 (31.0-37.0) g/dL RDW 12.8 (11.5-15.5) % Plt Count 304 (150-450) k/uL MPV 7.6 Neutrophils % 74 % Lymphocytes % 18 % Monocytes % 5 % Eosinophils % 1 % Basophils % 0 % Neutrophils # 8.4 H (1.3-7.7) k/uL Lymphocytes # 2.1 (1.0-4.8) k/uL Monocytes # 0.6 (0-1.0) k/uL Eosinophils # 0.2 (0-0.7) k/uL Basophils # 0.0 (0-0.2) k/uL Sodium 138 (137-145) mmol/L Potassium 4.6 (3.5-5.1) mmol/L Chloride 103 (98-107) mmol/L Carbon Dioxide 23 (22-30) mmol/L Anion Gap 12 mmol/L BUN 17 (9-20) mg/dL Creatinine 0.75 (0.66-1.25) mg/dL Est GFR (CKD-EPI)AfAm >90 (>60 ml/min/1.73 sqM) Est GFR (CKD-EPI)NonAf >90 (>60 ml/min/1.73 sqM) Glucose 121 H (74-99) mg/dL Calcium 9.8 (8.4-10.2) mg/dL Phosphorus 3.2 (2.5-4.5) mg/dL Magnesium 1.8 (1.6-2.3) mg/dL Total Bilirubin 0.8 (0.2-1.3) mg/dL AST 50 (17-59) U/L ALT 105 H (4-49) U/L Alkaline Phosphatase 111 (38-126) U/L Total Protein 8.1 (6.3-8.2) g/dL Albumin 4.9 (3.5-5.0) g/dL - Radiology Data Radiology results: report reviewed (CT does show dental abscess with surrounding inflammation), image reviewed Disposition Clinical Impression: Dental infection, Pain, dental, Dental abscess Disposition: HOME SELF-CARE Condition: Good Instructions (If sedation given, give patient instructions): Dental Abscess (ED), Toothache (ED) Is patient prescribed a controlled substance at d/c from ED?: No Referrals: Dayanna Meredith DO [Primary Care Provider] - 1-2 days
[2020-08-07 04:49] LABS: Basophils % (A) 0 %; Eosinophils # (A) 0.2 k/uL (0-0.7); Eosinophils % (A) 1 %; HCT 44.7 % (39.0-53.0); HGB 15.5 gm/dL (13.0-17.5); Lymphocytes # (A) 2.1 k/uL (1.0-4.8); Lymphocytes % (A) 18 %; MCH 29.9 pg (25.0-35.0); MCHC 34.7 g/dL (31.0-37.0); MCV 86.1 fL (80.0-100.0); Mean Platelet Volume 7.6; Monocytes # (A) 0.6 k/uL (0-1.0); Monocytes % (A) 5 %; Neutrophils # (A) 8.4 k/uL (1.3-7.7); Neutrophils % (A) 74 %; Platelet Count 304 k/uL (150-450); RBC 5.19 m/uL (4.30-5.90); RDW 12.8 % (11.5-15.5); WBC 11.2 k/uL (3.8-10.6)
--- NOTE | 2020-08-07 04:55 | CT ---
EXAM: CT Neck With Intravenous Contrast CLINICAL HISTORY: ITS.REASON CT Reason: abscess TECHNIQUE: Axial computed tomography images of the neck with intravenous contrast. CTDI is 19.441 mGy and DLP is 712 mGy-cm. This CT exam was performed using one or more of the following dose reduction techniques: automated exposure control, adjustment of the mA and/or kV according to patient size, and/or use of iterative reconstruction technique. COMPARISON: No relevant prior studies available. FINDINGS: Oropharynx: No significant tonsillar enlargement. No peritonsillar abscess. Hypopharynx: Unremarkable. Larynx: Normal epiglottis. Trachea: Unremarkable. Retropharyngeal space: Unremarkable. Submandibular/parotid glands: Glands are normal in size. Thyroid: No nodules. Bones/joints: No acute fracture. Periapical lucency involving the right maxillary canine. Soft tissues: Significant soft tissue swelling in the submental and right more than left submandibular region and right lower face. This process extends into the lower deep neck space to the level of the thyroid glands. Vasculature: Unremarkable. Lymph nodes: Enlarged lymph nodes. Sinuses: Unremarkable. No acute sinusitis. Mastoid air cells: Unremarkable. No mastoid effusion. Lung apices: Unremarkable. Pulmonary arteries dilated to 3.2 cm. IMPRESSION: 1. Significant inflammation and swelling in the right lower face/neck involving the submental/right more than left submandibular regions. This process extends into the lower deep neck space to the level of the thyroid glands. Likely infectious process. No abscess. No airway compromise. 2. Dilated pulmonary artery, correlate with pulmonary arterial hypertension. 3. 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 No associated abscess. <MYCVCSECTION> Communications: 08/07/20 04:52 Call Doctor Regarding Above results, called Dr. Adhikari on 08/07 04:52 (-05:00)
[2020-08-07 05:11] LABS: ALT 105 U/L (4-49); AST 50 U/L (17-59); African American GFR (CKD) >90 (>60 ml/min/1.73 sqM); Albumin 4.9 g/dL (3.5-5.0); Alkaline Phosphatase 111 U/L (38-126); Anion Gap 12 mmol/L; Blood Urea Nitrogen 17 mg/dL (9-20); Calcium 9.8 mg/dL (8.4-10.2); Carbon Dioxide 23 mmol/L (22-30); Chloride 103 mmol/L (98-107); Glucose 121 mg/dL (74-99); Magnesium 1.8 mg/dL (1.6-2.3); Non-African American GFR(CKD) >90 (>60 ml/min/1.73 sqM); Phosphorus 3.2 mg/dL (2.5-4.5); Potassium 4.6 mmol/L (3.5-5.1); Sodium 138 mmol/L (137-145); Total Bilirubin 0.8 mg/dL (0.2-1.3); Total Protein 8.1 g/dL (6.3-8.2)
[2020-08-07 05:34] VITALS: BP 130/83; PULSE 98; RESP 18
== END 2020-08-07 05:34 | disposition home or self-care (01) ==
LOC: EC 02:57
DX: K04.7 Periapical abscess without sinus (principal); F90.9 Attention-deficit hyperactivity disorder, unspecified type; F17.200 Nicotine dependence, unspecified, uncomplicated; Z79.899 Other long term (current) drug therapy; Z88.6 Allergy status to analgesic agent; Z88.0 Allergy status to penicillin
CPT/HCPCS: 99284; 96365; 96375 ×2; 96361; 36415; 80053; 83735; 84100; 85025; 70491; J1100; J1885; Q9967

== ENCOUNTER 2020-08-08 18:14 | Inpatient (IN) | payer OTHER ==
[2020-08-08] MEDS ORDERED: KETOROLAC 15 MG/ML 1 ML VIAL IVP STA (18:55)
[2020-08-08] MEDS ORDERED: HYDROmorphone 0.5 MG/0.5 ML SYRINGE IVP STA (18:57)
[2020-08-08] MEDS ORDERED: CLINDAMYCIN 900 MG in DEXTROSE 5% IN WATER 50 ML IVPB STA ×2 (18:59)
[2020-08-08] MEDS ORDERED: cefTRIAXone IN SWFI 1,000 MG/10 ML SYRINGE IVP STA (19:02)
--- NOTE | 2020-08-08 19:05 | ED ---
General Adult HPI - General Chief complaint: Dental/Oral Stated complaint: Tooth abcess, swollen mouth Time Seen by Provider: 08/08/20 18:20 Source: patient, RN notes reviewed, old records reviewed Mode of arrival: ambulatory Limitations: no limitations - History of Present Illness Initial comments: This is a 25 her old male comes in complaining of facial swelling on the right side of his face under his jaw. Patient states it started approximate month ago when he broke molar. Patient states he been in and out of his tetanus office they recently to start him on clindamycin on Tuesday but the symptoms have worsened. Patient states is difficult for him to open up his mouth fully anymore and the pain on the jaw line and underneath the jaw on the right is significant. Patient denies any fevers. Patient denies any chest pain difficult breathing shortness of breath. Patient denies any difficulty swallowing. - Related Data Home Medications Medication Instructions Recorded Confirmed Dextroamphetamine/Amphetamine 30 mg PO QAM 04/16/17 01/16/20 [Adderall Xr] Ibuprofen [Motrin] 800 mg PO QAM 04/16/17 01/16/20 HYDROcodone/APAP 7.5-325MG [[place] 1 tab PO QID PRN 01/16/20 01/16/20 7.5-325] Previous Rx's Medication Instructions Recorded HYDROcodone/APAP 5-325MG [[place] 1 tab PO Q6HR PRN #10 tab 01/16/20 5-325] Clindamycin HCl 300 mg PO Q6HR #40 cap 08/06/20 Allergies Allergy/AdvReac Type Severity Reaction Status Date / Time meloxicam [From Mobic] Allergy Rash/Hives Verified 08/08/20 18:23 Penicillins Allergy Anaphylaxis Verified 08/08/20 18:23 Review of Systems ROS Statement: Those systems with pertinent positive or pertinent negative responses have been documented in the HPI. ROS Other: All systems not noted in ROS Statement are negative. Past Medical History Past Medical History: Asthma, Osteoarthritis (OA) Additional Past Medical History / Comment(s): STATES ARTHRITIS IN BACK, CONSTIPATION History of Any Multi-Drug Resistant Organisms: None Reported Past Surgical History: Cholecystectomy Additional Past Anesthesia/Blood Transfusion Reaction / Comment(s): NO ANESTHESIA HX. Past Psychological History: ADD/ADHD Smoking Status: Current every day smoker Past Alcohol Use History: Occasional Past Drug Use History: Marijuana - Past Family History Mother Family Medical History: No Reported History General Exam - General Exam Comments Initial Comments: GENERAL: Patient is well-developed and well-nourished. Patient is nontoxic and well- hydrated and is in moderate distress. ENT: Patient has significant right side of his face swelling in the cheek and very tense swelling under the jaw particularly the right aspect of the submandibular space. Patient is only able to open his mouth such that his teeth are approximately 2 cm apart. EYES: The sclera were anicteric and conjunctiva were pink and moist. Extraocular movements were intact and pupils were equal round and reactive to light. Eyelids were unremarkable. PULMONARY: Unlabored respirations. Good breath sounds bilaterally. No audible rales rhonchi or wheezing was noted. CARDIOVASCULAR: There is a regular rate and rhythm without any murmurs gallops or rubs. ABDOMEN: Soft and nontender with normal bowel sounds. SKIN: Skin is clear with no lesions or rashes and otherwise unremarkable. NEUROLOGIC: Patient is alert and oriented x3. Cranial nerves II through XII are grossly intact. Motor and sensory are also intact. Normal speech, volume and content. Symmetrical smile. MUSCULOSKELETAL: Normal extremities with adequate strength and full range of motion. LYMPHATICS: No significant lymphadenopathy is noted PSYCHIATRIC: Normal psychiatric evaluation. Limitations: no limitations Course Vital Signs 08/08/20 08/08/20 18:20 20:01 Temperature 98.7 F 99.2 F Pulse Rate 101 H 96 Respiratory 22 18 Rate Blood Pressure 105/102 135/81 O2 Sat by Pulse 99 96 Oximetry Medical Decision Making - Medical Decision Making computed tomography scan shows a submandibular abscess with surrounding inflammation. I started the patient on 2 g Rocephin and clindamycin. - Lab Data Result diagrams: 08/08/20 19:09 08/08/20 19:09 Lab Results 08/08/20 08/08/20 08/08/20 Range/Units 19:09 19:09 19:09 WBC 12.5 H (3.8-10.6) k/uL RBC 5.13 (4.30-5.90) m/uL Hgb 14.7 (13.0-17.5) gm/dL Hct 44.8 (39.0-53.0) % MCV 87.3 (80.0-100.0) fL MCH 28.7 (25.0-35.0) pg MCHC 32.9 (31.0-37.0) g/dL RDW 12.9 (11.5-15.5) % Plt Count 299 (150-450) k/uL MPV 7.8 Neutrophils % 73 % Lymphocytes % 19 % Monocytes % 6 % Eosinophils % 2 % Basophils % 1 % Neutrophils # 9.0 H (1.3-7.7) k/uL Lymphocytes # 2.4 (1.0-4.8) k/uL Monocytes # 0.7 (0-1.0) k/uL Eosinophils # 0.2 (0-0.7) k/uL Basophils # 0.1 (0-0.2) k/uL Sodium 139 (137-145) mmol/L Potassium 4.9 (3.5-5.1) mmol/L Chloride 104 (98-107) mmol/L Carbon Dioxide 24 (22-30) mmol/L Anion Gap 11 mmol/L BUN 13 (9-20) mg/dL Creatinine 0.61 L (0.66-1.25) mg/dL Est GFR (CKD-EPI)AfAm >90 (>60 ml/min/1.73 sqM) Est GFR (CKD-EPI)NonAf >90 (>60 ml/min/1.73 sqM) Glucose 111 H (74-99) mg/dL Plasma Lactic Acid Rommel 1.9 (0.7-2.0) mmol/L Calcium 9.4 (8.4-10.2) mg/dL Total Bilirubin 0.9 (0.2-1.3) mg/dL AST 157 H (17-59) U/L ALT 252 H (4-49) U/L Alkaline Phosphatase 102 (38-126) U/L Total Protein 7.9 (6.3-8.2) g/dL Albumin 4.7 (3.5-5.0) g/dL Disposition Clinical Impression: Submandibular abscess Disposition: ADMITTED IP TO THIS HOSP Referrals: Dayanna Meredith DO [Primary Care Provider] - 1-2 days Time of Disposition: 20:52
[2020-08-08] MEDS: cefTRIAXone IN SWFI 1,000 MG/10 ML SYRINGE IVP SCH ×2 (19:19→19:25)
[2020-08-08 19:25] LABS: Basophils # (A) 0.1 k/uL (0-0.2); Basophils % (A) 1 %; Eosinophils # (A) 0.2 k/uL (0-0.7); Eosinophils % (A) 2 %; HCT 44.8 % (39.0-53.0); HGB 14.7 gm/dL (13.0-17.5); Lymphocytes # (A) 2.4 k/uL (1.0-4.8); Lymphocytes % (A) 19 %; MCH 28.7 pg (25.0-35.0); MCHC 32.9 g/dL (31.0-37.0); MCV 87.3 fL (80.0-100.0); Mean Platelet Volume 7.8; Monocytes # (A) 0.7 k/uL (0-1.0); Monocytes % (A) 6 %; Neutrophils % (A) 73 %; Platelet Count 299 k/uL (150-450); RBC 5.13 m/uL (4.30-5.90); RDW 12.9 % (11.5-15.5); WBC 12.5 k/uL (3.8-10.6)
[2020-08-08 19:35] LABS: ALT 252 U/L (4-49); AST 157 U/L (17-59); African American GFR (CKD) >90 (>60 ml/min/1.73 sqM); Albumin 4.7 g/dL (3.5-5.0); Alkaline Phosphatase 102 U/L (38-126); Anion Gap 11 mmol/L; Blood Urea Nitrogen 13 mg/dL (9-20); Calcium 9.4 mg/dL (8.4-10.2); Carbon Dioxide 24 mmol/L (22-30); Chloride 104 mmol/L (98-107); Glucose 111 mg/dL (74-99); Non-African American GFR(CKD) >90 (>60 ml/min/1.73 sqM); Sodium 139 mmol/L (137-145); Total Bilirubin 0.9 mg/dL (0.2-1.3); Total Protein 7.9 g/dL (6.3-8.2)
[2020-08-08 19:41] LABS: Potassium 4.9 mmol/L (3.5-5.1)
--- NOTE | 2020-08-08 20:33 | CT ---
EXAMINATION TYPE: CT facial bones w con DATE OF EXAM: 08/08/2020 COMPARISON: CT neck soft tissues 08/07/2020. HISTORY: Right sided facial swelling and pain. CT DLP: 893.2 mGycm Automated exposure control for dose reduction was used. CONTRAST: CT scan of the facial bones is performed with IV Contrast, patient injected with 100ml mL of Isovue 3 00. TECHNIQUE: CT scan of the facial bones is performed following the administration of intravenous contr ast, axial images are obtained, coronal reformatted images are also reviewed. FINDINGS: There is redemonstration of diffuse moderate to marked soft tissue fat stranding centered a bout the mandible. There is involvement of the superficial and deep soft tissues. There is mildly enh ancing confluent edema, difficult to measure but approximately 2.1 x 1.2 cm about the anterior right mandible body. Dental caries are noted. No soft tissue gas. There is mild local mass effect. Visualiz ed airways remain patent. There are multiple mildly enlarged level 1/2 cervical lymph nodes, likely reactive. The visualized piedra bmandibular glands are otherwise intact. No acute osseous abnormality. There is mild mucosal thickeni ng of the ethmoid sinus. The mastoid air cells are adequately aerated. IMPRESSION: Redemonstrated diffuse inflammatory about the right mandibular soft tissues with area of confluent ed bal measuring at least 2.1 cm and highly suggestive of phlegmon/early odontogenic abscess.
[2020-08-08] MEDS ORDERED: HYDROmorphone 1 MG/ML 1 ML SYRINGE IVP STA (20:35)
[2020-08-08] MEDS ORDERED: SODIUM CHLORIDE 0.9% 1,000 ML IV ONE (20:53)
[2020-08-09] MEDS: KETOROLAC 15 MG/ML 1 ML VIAL IVP SCH ×5 (00:10→22:58)
[2020-08-09] MEDS: CLINDAMYCIN 600 MG in DEXTROSE 5% IN WATER 50 ML IVPB SCH ×8 (00:11→22:58)
[2020-08-09] MEDS: ACETAMINOPHEN TAB 325 MG TAB PO PRN ×2 (00:35→07:28)
[2020-08-09] MEDS: NICOTINE 21MG/24HR PATCH TRANSDERM SCH ×2 (00:36→08:56)
[2020-08-09] MEDS: HYDROmorphone 0.5 MG/0.5 ML SYRINGE IVP PRN ×2 (02:19→05:06)
[2020-08-09] MEDS ORDERED: HYDROmorphone 1 MG/ML 1 ML SYRINGE IVP STA (06:01)
[2020-08-09 08:53] LABS: Basophils # (A) 0.03 X 10*3/uL (0.00-0.10); Basophils % (A) 0.2 %; Eosinophils # (A) 0.05 X 10*3/uL (0.04-0.35); Eosinophils % (A) 0.3 %; HCT 41.2 % (39.6-50.0); HGB 13.7 g/dL (13.0-17.0); Lymphocytes # (A) 1.98 X 10*3/uL (0.90-5.00); Lymphocytes % (A) 13.6 %; MCHC 33.3 g/dL (32.0-37.0); MCV 87.1 fL (80.0-97.0); Mean Platelet Volume 9.9 fL (9.5-12.2); Monocytes % (A) 8.9 %; Neutrophils # (A) 11.11 X 10*3/uL (1.80-7.70); Neutrophils % (A) 76.5 %; Platelet Count 299 X 10*3/uL (140-440); RBC 4.73 X 10*6/uL (4.40-5.60); RDW 13.2 % (11.5-14.5); WBC 14.54 X 10*3/uL (4.50-10.00)
[2020-08-09] MEDS: HEPARIN SODIUM,PORCINE 5,000 UNIT/ML 1 ML VIAL SQ SCH ×2 (08:55→20:10)
[2020-08-09] MEDS: FAMOTIDINE 20 MG/2 ML VIAL IV SCH ×2 (08:56→20:10)
[2020-08-09] MEDS: HYDROmorphone 1 MG/ML 1 ML SYRINGE IVP PRN ×2 (09:03→12:40)
[2020-08-09 09:19] LABS: African American GFR (CKD) 142.9 (60.0-200.0); Anion Gap 9.7 mmol/L (4.00-12.00); BUN/Creat Ratio 13.75 Ratio (12.00-20.00); Calcium 9.5 mg/dL (8.7-10.3); Carbon Dioxide 23.3 mmol/L (21.6-31.8); Non-African American GFR(CKD) 123.3 (60.0-200.0); Potassium 4.3 mmol/L (3.5-5.5)
[2020-08-09] MEDS: SODIUM CHLORIDE 0.9% 1,000 ML IV SCH ×2 (10:19→20:10)
--- NOTE | 2020-08-09 13:57 | P.HPIM ---
History of Present Illness 25-year-old male came in with facial swelling found to have submandibular abscess subsequently admitted for that. Patient does have [place] Kar[place] teeth let to significant right upper face swelling with the swelling standing up to the right eye. Patient up broken molar approximately a month ago patient does smoke. Patient was started on Rocephin and clindamycin as patient is ALLERGIC to penicillins. Patient was started on Toradol as well as opiate pain medications for pain. ENT and maxillofacial surgery evaluated the patient patient will undergo incision and drainage today along with tooth extraction. Review of Systems REVIEW OF SYSTEMS: CONSTITUTIONAL: No fever, no malaise, no fatigue. HEENT: As mentioned in HPI CARDIOVASCULAR: No chest pain, orthopnea, PND, no palpitations, no syncope. PULMONARY: No shortness of breath, no cough, no hemoptysis. GASTROINTESTINAL: No diarrhea, no nausea, no vomiting, no abdominal pain. NEUROLOGICAL: No headaches, no weakness, no numbness. HEMATOLOGICAL: Denies any bleeding or petechiae. GENITOURINARY: Denies any burning micturition, frequency, or urgency. MUSCULOSKELETAL/RHEUMATOLOGICAL: Denies any joint pain, swelling, or any muscle pain. ENDOCRINE: Denies any polyuria or polydipsia. The rest of the 14-point review of systems is negative. Past Medical History Past Medical History: Asthma, Osteoarthritis (OA) Additional Past Medical History / Comment(s): STATES ARTHRITIS IN BACK, CONSTIPATION History of Any Multi-Drug Resistant Organisms: None Reported Past Surgical History: Cholecystectomy Past Anesthesia/Blood Transfusion Reactions: No Reported Reaction Additional Past Anesthesia/Blood Transfusion Reaction / Comment(s): NO ANESTHESIA HX. Past Psychological History: ADD/ADHD Smoking Status: Current every day smoker Past Alcohol Use History: Occasional Additional Past Alcohol Use History / Comment(s): SMOKES 1/2 PPD. SMOKING SINCE 12 YEARS OLD. Past Drug Use History: Marijuana - Past Family History Mother Family Medical History: No Reported History Medications and Allergies Home Medications Medication Instructions Recorded Confirmed Type Ibuprofen [Motrin] 800 mg PO TID PRN 04/16/17 08/08/20 History Clindamycin HCl 300 mg PO Q6HR #40 cap 08/06/20 08/08/20 Rx Allergies Allergy/AdvReac Type Severity Reaction Status Date / Time meloxicam [From Mobic] Allergy Rash/Hives Verified 08/08/20 18:23 Penicillins Allergy Anaphylaxis Verified 08/08/20 18:23 Physical Exam Vitals: Vital Signs Temp Pulse Pulse Resp BP BP Pulse Ox 08/09/20 13:32 99.1 F 76 19 128/65 95 08/09/20 07:36 120 H 16 08/09/20 07:00 98.7 F 120 H 16 156/92 96 08/09/20 02:27 100.2 F H 08/09/20 00:28 101.5 F H 101 H 17 159/96 99 08/08/20 22:11 98.1 F 92 16 148/101 98 08/08/20 20:01 99.2 F 96 18 135/81 96 08/08/20 18:20 98.7 F 101 H 22 105/102 99 Intake and Output 08/08/20 08/09/20 08/09/20 22:59 06:59 14:59 Intake Total 1620 240 Balance 1620 240 Intake: Oral 1620 240 Other: # Voids 3 Weight 118.388 kg PHYSICAL EXAMINATION: GENERAL: The patient is alert and oriented x3, not in any acute distress. Well developed, well nourished. HEENT: Patient has a significant right-sided facial swelling physical exam as di scussed above local is of temperature tenderness unable to examine the oral cavity because of swelling. CARDIOVASCULAR: S1 and S2 present. No murmurs, rubs, or gallops. PULMONARY: Chest is clear to auscultation, no wheezing or crackles. ABDOMEN: Soft, nontender, nondistended, normoactive bowel sounds. No palpable organomegaly. MUSCULOSKELETAL: No joint swelling or deformity. EXTREMITIES: No cyanosis, clubbing, or pedal edema. NEUROLOGICAL: Gross neurological examination did not reveal any focal deficits. SKIN: No rashes. Results CBC & Chem 7: 08/09/20 06:07 08/09/20 06:07 Labs: Abnormal Lab Results - Last 24 Hours (Table) 08/08/20 08/08/20 08/09/20 Range/Units 19:09 19:09 06:07 WBC 12.5 H 14.54 H (3.8-10.6) k/uL Immature Gran # 0.07 H (0.00-0.04) X 10*3/uL Neutrophils # 9.0 H 11.11 H (1.3-7.7) k/uL Monocytes # 1.30 H (0.20-1.00) X 10*3/uL Creatinine 0.61 L (0.66-1.25) mg/dL Glucose 111 H (74-99) mg/dL AST 157 H (17-59) U/L ALT 252 H (4-49) U/L Thrombosis Risk Factor Assmnt - Choose All That Apply Any of the Below Risk Factors Present?: No Other Risk Factors: No Other congenital or acquired thrombophilia - If yes, enter type in comment: No Thrombosis Risk Factor Assessment Level: Very Low Risk Assessment and Plan Plan: -Sepsis secondary to somatic with an abscess for which patient underwent incision and drainage patient has caries tooth and tooth abscess which will be addressed as well. Patient is presently on Rocephin and clindamycin which will be continued which will cover although old organisms. He is ALLERGIC to penicillins -Tachycardia: Secondary to his long-acting Adderall as well as sepsis continue with IV fluids and monitor -Asthma without any acute exacerbation -Nicotine use and marijuana use: Counseling was provided
--- NOTE | 2020-08-09 13:59 | P.GSCN ---
History of Present Illness Consult date: 08/09/20 Reason for Consult: Dental abscess. Requesting physician: Abhijit E Sheet History of present illness: 5-year-old male presents yesterday to emergency room after 1 month of dental pain with increased facial swelling. Reported having multiple courses of by mouth antibiotics as an outpatient and has not resolved. Stated last night in observation and had continued to get worse. Has increased pain and swelling of the right face but denies difficulty swallowing or breathing. Review of Systems As per HPI Past Medical History Past Medical History: Asthma, Osteoarthritis (OA) Additional Past Medical History / Comment(s): STATES ARTHRITIS IN BACK, CONSTIPATION History of Any Multi-Drug Resistant Organisms: None Reported Past Surgical History: Cholecystectomy Past Anesthesia/Blood Transfusion Reactions: No Reported Reaction Additional Past Anesthesia/Blood Transfusion Reaction / Comm: NO ANESTHESIA HX. Past Psychological History: ADD/ADHD Smoking Status: Current every day smoker Past Alcohol Use History: Occasional Additional Past Alcohol Use History / Comment(s): SMOKES 1/2 PPD. SMOKING SINCE 12 YEARS OLD. Past Drug Use History: Marijuana - Past Family History Mother Family Medical History: No Reported History Medications and Allergies Home Medications Medication Instructions Recorded Confirmed Type Ibuprofen [Motrin] 800 mg PO TID PRN 04/16/17 08/08/20 History Clindamycin HCl 300 mg PO Q6HR #40 cap 08/06/20 08/08/20 Rx Allergies Allergy/AdvReac Type Severity Reaction Status Date / Time meloxicam [From Mobic] Allergy Rash/Hives Verified 08/08/20 18:23 Penicillins Allergy Anaphylaxis Verified 08/08/20 18:23 Surgical - Exam Vital Signs Temp Pulse Resp BP Pulse Ox 98.7 F 101 H 22 105/102 99 08/08/20 18:20 08/08/20 18:20 08/08/20 18:20 08/08/20 18:20 08/08/20 18:20 Facial cellulitis noted on the right side extending from the lower eyelid down past the angle of the mandible from the labial commissure to the external audatrymeatus. Severe trismus noted with difficult intraoral exam. most of the swelling is toward the buccal wwith minimal lingual swelling noted. trouble swallowing saliva noted able to feel sharp surface of tooth 18 with other decayed teeth noted. patient able to open eye with help and PERRLA and EOMI - General moderate pain Results reviewed PANORAMIC reconstruction and tooth 31 appears to have decay. some abcess development noted near mandibular border on right - Labs 08/09/20 06:07 08/09/20 06:07 Abnormal Lab Results - Last 24 Hours (Table) 08/08/20 08/08/20 08/09/20 Range/Units 19:09 19:09 06:07 WBC 12.5 H 14.54 H (3.8-10.6) k/uL Immature Gran # 0.07 H (0.00-0.04) X 10*3/uL Neutrophils # 9.0 H 11.11 H (1.3-7.7) k/uL Monocytes # 1.30 H (0.20-1.00) X 10*3/uL Creatinine 0.61 L (0.66-1.25) mg/dL Glucose 111 H (74-99) mg/dL AST 157 H (17-59) U/L ALT 252 H (4-49) U/L Diabetes panel 08/08/20 08/09/20 Range/Units 19:09 06:07 Sodium 139 135 (137-145) mmol/L Potassium 4.9 4.3 (3.5-5.1) mmol/L Chloride 104 102 (98-107) mmol/L Carbon Dioxide 24 23.3 (22-30) mmol/L BUN 13 11.0 (9-20) mg/dL Creatinine 0.61 L 0.8 (0.66-1.25) mg/dL Glucose 111 H 96 (74-99) mg/dL Calcium 9.4 9.5 (8.4-10.2) mg/dL AST 157 H (17-59) U/L ALT 252 H (4-49) U/L Alkaline Phosphatase 102 (38-126) U/L Total Protein 7.9 (6.3-8.2) g/dL Albumin 4.7 (3.5-5.0) g/dL Calcium panel 08/08/20 08/09/20 Range/Units 19:09 06:07 Calcium 9.4 9.5 (8.4-10.2) mg/dL Albumin 4.7 (3.5-5.0) g/dL Pituitary panel 08/08/20 08/09/20 Range/Units 19:09 06:07 Sodium 139 135 (137-145) mmol/L Potassium 4.9 4.3 (3.5-5.1) mmol/L Chloride 104 102 (98-107) mmol/L Carbon Dioxide 24 23.3 (22-30) mmol/L BUN 13 11.0 (9-20) mg/dL Creatinine 0.61 L 0.8 (0.66-1.25) mg/dL Glucose 111 H 96 (74-99) mg/dL Calcium 9.4 9.5 (8.4-10.2) mg/dL Adrenal panel 08/08/20 08/09/20 Range/Units 19:09 06:07 Sodium 139 135 (137-145) mmol/L Potassium 4.9 4.3 (3.5-5.1) mmol/L Chloride 104 102 (98-107) mmol/L Carbon Dioxide 24 23.3 (22-30) mmol/L BUN 13 11.0 (9-20) mg/dL Creatinine 0.61 L 0.8 (0.66-1.25) mg/dL Glucose 111 H 96 (74-99) mg/dL Calcium 9.4 9.5 (8.4-10.2) mg/dL Total Bilirubin 0.9 (0.2-1.3) mg/dL AST 157 H (17-59) U/L ALT 252 H (4-49) U/L Alkaline Phosphatase 102 (38-126) U/L Total Protein 7.9 (6.3-8.2) g/dL Albumin 4.7 (3.5-5.0) g/dL Assessment and Plan Assessment: Facial Cellulitis associated with Dental Abcess odontogenic decay Trismus Plan: Plan to take patient to OR for inscion and drainge of abbcess and removal of tooth.
[2020-08-09] MEDS ORDERED: HYDROmorphone (PF) 1 MG/ML ONE (15:20)
[2020-08-09] MEDS ORDERED: PROPOFOL 10 MG/ML 20 ML VIAL IV ONE (15:20)
[2020-08-09] MEDS ORDERED: ONDANSETRON 4 MG/2 ML VIAL ONE (15:20)
[2020-08-09] MEDS ORDERED: GLYCOPYRROLATE 0.2 MG/ML 2 ML VIAL ONE (15:20)
[2020-08-09] MEDS ORDERED: ROCURONIUM 10 MG/ML (5 ML VIAL) IV ONE (15:20)
[2020-08-09] MEDS ORDERED: DEXAMETHASONE SOD PHOSPHATE 10 MG/ML 1 ML VIAL ONE (15:20)
[2020-08-09] MEDS ORDERED: SUCCINYLCHOLINE CHLORIDE 100 MG/5 ML SYR IV ONE (15:20)
[2020-08-09] MEDS ORDERED: MIDAZOLAM 2 MG/2 ML VIAL ONE (15:20)
[2020-08-09] MEDS ORDERED: CLINDAMYCIN 150 MG/ML 4 ML VIAL ONE (15:20)
[2020-08-09] MEDS ORDERED: fentaNYL (PF) 50 MCG/ML 2 ML AMP ONE (15:20)
[2020-08-09] MEDS ORDERED: SODIUM CHLORIDE 0.9% 1,000 ML IV ONE (15:20)
[2020-08-09] MEDS ORDERED: NEOSTIGMINE 1 MG/ML 10 ML VIAL ONE (15:20)
[2020-08-09] MEDS ORDERED: KETOROLAC 30 MG/ML 1 ML VIAL ONE (15:20)
[2020-08-09] MEDS ORDERED: LIDOCAINE 1% INJ 10MG/ML (20 ML MDV) ONE (15:20)
[2020-08-09] MEDS ORDERED: LIDOCAINE 2%-EPI 1:100,000 20 ML VIAL SUBMUCOSAL ONE ×2 (15:41)
[2020-08-09] MEDS ORDERED: LACTATED RINGERS 1,000 ML IV ONE (15:53)
--- NOTE | 2020-08-09 16:33 | P.OP ---
Date of Procedure: 08/09/20 Preoperative Diagnosis: Cellulitis of Right face dental abcess deep decay 18 Postoperative Diagnosis: same Procedure(s) Performed: I and D x 2 right neck intra oral I and D right vestubule surgical extraction of tooth 18 Anesthesia: MELISSA Surgeon: Wilder Montiel Estimated Blood Loss (ml): 10 IV fluids (ml): 1,200 Urine output (ml): 0 Pathology: other (anerobic and aerobic cultures and sensitivity) Condition: stable Disposition: floor Indications for Procedure: Patient had failed outpatient by mouth antibiotic therapy and was admitted day ago on IV antibiotic therapy and seemed to be getting more swollen. Operative Findings: foul odor to the exudate Description of Procedure: Patient was intubated with fiberoptic oral intubation per the anesthesia record. This went well given the circumstances but his mouth is only opened approximately 15-20 mm. Patient's brandt was shaved on the right side to expose the firm swelling of his sub-mandibular space also cellulitic swelling of the right buccal space and right temporal space. Able to open the patient's mouth approximately 25 mm after the completion of and static intubation. And a sterile field was obtained. The neck swelling was approximately 3 cm x 6 cm the submandibular area seemed to be a. Fluctuance and anterior portion of this and 2 drains were placed with 1 cm skin incisions and blunt dissection up to the mandibular border. More drainage approximately 5-10 mL came from the anterior portion with a mix of bloody and slightly yellow exudate came from the posterior portion of this drainage. The decay on tooth #18 was the worse and this concurred with that the patient had said that tooth #18 was the one that hurt him for the past month. After placing throat pack and local anesthetic full-thickness buccal flap with small amount of bone in the tooth was removed. No pus came from the socket so decision was made to place a vestibular incision and do incision and drainage of this area as well. Drain position favored up into the temporal space and an effort to encourage drainage from that area. Drains were cleaned the neck and dressed appropriately and the patient's was then awakened and extubated taken to recovery her weight is stable condition awaiting transfer back up to the floor to resume all previous orders.
[2020-08-09] MEDS ORDERED: NALOXONE 0.4 MG/ML 1 ML VIAL IV PRN (16:35)
[2020-08-09] MEDS ORDERED: HYDROMORPHONE (PF) 10 MG in SODIUM CHLORIDE 0.9% 49 ML, PCA BAG 1 BAG IV PRN (16:45)
[2020-08-09] MEDS: HYDROmorphone PCA 10 MG/50 ML BAG IV PRN (17:32)
[2020-08-09] MEDS: metroNIDAZOLE-NS PMX 500 MG in SALINE 1 100ML.BAG IVPB SCH ×2 (17:54→22:59)
[2020-08-10] MEDS: KETOROLAC 15 MG/ML 1 ML VIAL IVP SCH ×4 (05:18→23:05)
[2020-08-10] MEDS: metroNIDAZOLE-NS PMX 500 MG in SALINE 1 100ML.BAG IVPB SCH ×4 (05:19→23:04)
[2020-08-10] MEDS: SODIUM CHLORIDE 0.9% 1,000 ML IV SCH ×3 (05:30→21:45)
[2020-08-10] MEDS: FAMOTIDINE 20 MG/2 ML VIAL IV SCH ×2 (07:38→21:44)
[2020-08-10] MEDS: NICOTINE 21MG/24HR PATCH TRANSDERM SCH (07:38)
[2020-08-10] MEDS: HEPARIN SODIUM,PORCINE 5,000 UNIT/ML 1 ML VIAL SQ SCH ×2 (07:39→21:44)
[2020-08-10] MEDS: CLINDAMYCIN 600 MG in DEXTROSE 5% IN WATER 50 ML IVPB SCH ×2 (09:06)
[2020-08-10 09:51] LABS: HCT 40.3 % (39.6-50.0); HGB 13.7 g/dL (13.0-17.0); MCH 29.5 pg (27.0-32.0); MCV 86.9 fL (80.0-97.0); Mean Platelet Volume 10.1 fL (9.5-12.2); Platelet Count 318 X 10*3/uL (140-440); RBC 4.64 X 10*6/uL (4.40-5.60); RDW 13.2 % (11.5-14.5); WBC 15.13 X 10*3/uL (4.50-10.00)
[2020-08-10 09:58] LABS: African American GFR (CKD) 142.9 (60.0-200.0); Albumin 4.1 g/dL (3.80-4.90); Albumin/Globulin Ratio 1.28 (1.60-3.17); Anion Gap 8.4 mmol/L (4.00-12.00); BUN/Creat Ratio 11.25 Ratio (12.00-20.00); Calcium 9.4 mg/dL (8.7-10.3); Carbon Dioxide 25.6 mmol/L (21.6-31.8); Globulin 3.2 g/dL (1.6-3.3); Non-African American GFR(CKD) 123.3 (60.0-200.0); Potassium 4.6 mmol/L (3.5-5.5); Total Bilirubin 0.5 mg/dL (0.3-1.2); Total Protein 7.3 g/dL (6.2-8.2)
--- NOTE | 2020-08-10 12:04 | P.PN ---
Subjective Progress Note Date: 08/10/20 Principal diagnosis: Dental abscess related to the tooth #18 12 hours postop incision and drainage of submandibular abscess and extraction of tooth #18 Yesterday afternoon patient had a incision and drainage 2 of the right neck minimal purulent discharge as well as incision and drainage of the right temporal space through an intraoral incision as well as surgical extraction of tooth #18. Patient reported improvement immediately upon postop with his discomfort. Patient is laying flat in bed today but willing and able to get up in the chair. Able to see patient's right eye without difficulty today. He reported getting his contact in without difficulty. Advised patient not want wears contact while preseptal swelling exists. Spoke with Dr. chapa without follow order during incision and drainage and we feel that clindamycin may have selected out a anaerobic possibly gram-negative bacteria. Objective - Vital Signs Vital signs: Vital Signs Temp 99.0 F 08/10/20 07:00 Pulse 97 08/10/20 07:15 Resp 17 08/10/20 07:15 BP 159/97 08/10/20 07:00 Pulse Ox 94 L 08/10/20 07:00 Intake & Output 08/09/20 08/10/20 08/10/20 18:59 06:59 18:59 Intake Total 890 Output Total 10 Balance 880 Weight 118.388 kg Intake: IV 650 Oral 240 Output: Estimated Blood Loss 10 Other: # Voids 2 - Exam Patient resting in bed flat no apparent distress. Patient feels improvement. Opening mouth better. Approximately 20 mm to 25 mm. Intraoral drain still present. Extraoral drains are putting out small amount of pus. According to the nurse approximately $0.50 piece size drainage on drain sponge. Drains were just changed before I got here. - Labs CBC & Chem 7: 08/10/20 05:35 08/10/20 05:35 Labs: Abnormal Lab Results - Last 24 Hours (Table) 08/10/20 08/10/20 Range/Units 05:35 05:35 WBC 15.13 H (4.50-10.00) X 10*3/uL BUN/Creatinine Ratio 11.25 L (12.00-20.00) Ratio Glucose 115 H (70-110) mg/dL AST 53 H (14-35) U/L ALT 145 H (10-49) U/L Alkaline Phosphatase 146 H (41-126) U/L Albumin/Globulin Ratio 1.28 L (1.60-3.17) g/dL Microbiology - Last 24 Hours (Table) 08/08/20 18:55 Blood Culture - Preliminary Blood No Growth after 24 hours 08/08/20 19:09 Blood Culture - Preliminary Blood No Growth after 24 hours Assessment and Plan Assessment: Dental abscess of the right temporal and right submandibular space appears to be improving with current treatment. Plan: Christopher with Dr. Henry feel the clindamycin can be dropped from our treatment at this point with the addition of metronidazole. We both agree keeping Rocephin on board is a good idea until cultures come back. Recommend keeping patient upright in chair with a heating pad on the side of his face. Also recommend dressing changes every shift and please save dressings so I can examine him tomorrow thank you Time with Patient: Greater than 30 (Counseling patient about future dressing changes. Counseling patient about proper positioning. Counseling patient about home care.)
--- NOTE | 2020-08-10 13:40 | P.PN ---
Subjective Progress Note Date: 08/10/20 25-year-old male came in with facial swelling found to have submandibular abscess subsequently admitted for that. Patient does have [place] teeth let to significant right upper face swelling with the swelling standing up to the right eye. Patient up broken molar approximately a month ago patient does smoke. Patient was started on Rocephin and clindamycin as patient is ALLERGIC to penicillins. Patient was started on Toradol as well as opiate pain medications for pain. ENT and maxillofacial surgery evaluated the patient patient will undergo incision and drainage today along with tooth extraction. 08/10/2020 Patient seen on follow-up, no fevers, white count up a bit at 15.3. Currently receiving antimicrobial therapy with Rocephin and Flagyl, and cultures have been collected. Patient is tachycardic this morning, asking for his dose of Adderall which we are holding due to the tachycardia. CONSTITUTIONAL: no malaise, no fatigue. HEENT: As mentioned in HPI CARDIOVASCULAR: No chest pain, orthopnea, PND, no palpitations, no syncope. PULMONARY: No shortness of breath, no cough, no hemoptysis. GASTROINTESTINAL: No diarrhea, no nausea, GENITOURINARY: Denies any burning micturition, frequency, or urgency. MUSCULOSKELETAL/RHEUMATOLOGICAL: Denies any joint pain, swelling, or any muscle pain. Objective - Vital Signs Vital signs: Vital Signs Temp 99.0 F 08/10/20 07:00 Pulse 97 08/10/20 07:15 Resp 17 08/10/20 07:15 BP 159/97 08/10/20 07:00 Pulse Ox 94 L 08/10/20 07:00 Intake & Output 08/09/20 08/10/20 08/10/20 18:59 06:59 18:59 Intake Total 890 Output Total 10 Balance 880 Weight 118.388 kg Intake: IV 650 Oral 240 Output: Estimated Blood Loss 10 Other: # Voids 2 - Exam GENERAL: The patient is alert and oriented x3, not in any acute distress. Well developed, well nourished. HEENT: Patient has a significant right-sided facial swelling physical exam as discussed above local is of temperature tenderness unable to examine the oral cavity because of swelling. CARDIOVASCULAR: S1 and S2 present. No murmurs, rubs, or gallops. PULMONARY: Chest is clear to auscultation, no wheezing or crackles. ABDOMEN: Soft, nontender, nondistended, normoactive bowel sounds. No palpable organomegaly. MUSCULOSKELETAL: No joint swelling or deformity. EXTREMITIES: No cyanosis, clubbing, or pedal edema. NEUROLOGICAL: Gross neurological examination did not reveal any focal deficits. SKIN: No rashes. - Labs CBC & Chem 7: 08/10/20 05:35 08/10/20 05:35 Labs: Abnormal Lab Results - Last 24 Hours (Table) 08/10/20 08/10/20 Range/Units 05:35 05:35 WBC 15.13 H (4.50-10.00) X 10*3/uL BUN/Creatinine Ratio 11.25 L (12.00-20.00) Ratio Glucose 115 H (70-110) mg/dL AST 53 H (14-35) U/L ALT 145 H (10-49) U/L Alkaline Phosphatase 146 H (41-126) U/L Albumin/Globulin Ratio 1.28 L (1.60-3.17) g/dL Microbiology - Last 24 Hours (Table) 08/08/20 18:55 Blood Culture - Preliminary Blood No Growth after 24 hours 08/08/20 19:09 Blood Culture - Preliminary Blood No Growth after 24 hours Assessment and Plan Assessment: Plan: -Sepsis secondary to somatic with an abscess for which patient underwent incisi on and drainage patient has caries tooth and tooth abscess which will be addressed as well. Patient is presently on Rocephin and Flagyl which will be continued which will cover although old organisms. He is ALLERGIC to penicillins. Wound cultures collected and pending. -Tachycardia: Secondary to his long-acting Adderall which we are holding as well as sepsis continue with IV fluids and monitor. -Asthma without any acute exacerbation -Nicotine use and marijuana use: Counseling was provided
[2020-08-11] MEDS: HYDROmorphone PCA 10 MG/50 ML BAG IV PRN (04:05)
[2020-08-11] MEDS: metroNIDAZOLE-NS PMX 500 MG in SALINE 1 100ML.BAG IVPB SCH ×4 (05:12→23:30)
[2020-08-11] MEDS: KETOROLAC 15 MG/ML 1 ML VIAL IVP SCH ×3 (05:12→17:00)
[2020-08-11] MEDS: SODIUM CHLORIDE 0.9% 1,000 ML IV SCH ×3 (05:12→23:35)
[2020-08-11] MEDS: HEPARIN SODIUM,PORCINE 5,000 UNIT/ML 1 ML VIAL SQ SCH ×2 (08:53→19:55)
[2020-08-11] MEDS: FAMOTIDINE 20 MG/2 ML VIAL IV SCH ×2 (08:53→19:56)
[2020-08-11] MEDS: NICOTINE 21MG/24HR PATCH TRANSDERM SCH (08:54)
[2020-08-11] MEDS ORDERED: TEMAZEPAM 15 MG CAP PO PRN (17:16)
--- NOTE | 2020-08-11 17:48 | P.PN ---
Subjective Progress Note Date: 08/11/20 Principal diagnosis: Dental abscess related to the tooth #18 48 hours postop incision and drainage of submandibular abscess and extraction of tooth #18 Tuesday patient had a incision and drainage 2 of the right neck minimal purulent discharge as well as incision and drainage of the right temporal space through an intraoral incision as well as surgical extraction of tooth #18. Patient reported improvement immediately upon postop with his discomfort. Patient is up in his chair today with his girlfriend at the side seems comfortable able to see out of his right eye the swelling is no longer in the preseptal region. Objective - Vital Signs Vital signs: Vital Signs Temp 98.4 F 08/11/20 14:12 Pulse 84 08/11/20 14:12 Resp 19 08/11/20 14:12 BP 122/73 08/11/20 14:12 Pulse Ox 97 08/11/20 14:12 Intake & Output 08/10/20 08/11/20 08/11/20 18:59 06:59 18:59 Other: # Voids 2 1 - Exam On the patient's buccal space still appears swollen submandibular much less swollen. Opening slightly larger than yesterday. Intraoral drain seems intact no drainage noted. Tooth extraction site appears within normal limits from what I can see. Still limited exam. Extraoral drains are putting out appropriately. The drainage dressings from last night were observed and seen to have serosanguineous and blood of approximately 20 mL total. - Labs CBC & Chem 7: 08/10/20 05:35 08/10/20 05:35 Labs: Microbiology - Last 24 Hours (Table) 08/09/20 16:00 Wound Culture - Preliminary Neck 08/09/20 16:00 Anaerobic Culture - Preliminary Neck 08/08/20 18:55 Blood Culture Gram Stain - Preliminary Blood 08/08/20 18:55 Blood Culture - Final Blood 08/08/20 19:09 Blood Culture Gram Stain - Preliminary Blood 08/08/20 19:09 Blood Culture - Final Blood the cultures from the neck have been received. Assessment and Plan Assessment: Dental abscess of the right temporal and right submandibular space appears to be improving with current treatment. Plan to keep drains in longer due to sanaz nued output. Plan: Patient reports feeling better continues to improve. Recommend continue current therapy patient was unable to tolerate the heating pad on the side of the face due to increased pain.
--- NOTE | 2020-08-11 18:36 | PN ---
PROGRESS NOTE DATE OF SERVICE: 08/11/2020 This 25-year-old gentleman who was admitted with significant sepsis as well as a submandibular abscess had incision and drainage. The patient is on broad-spectrum IV antibiotics at this time. The white count is elevated to 15.3, and AST and ALT are also elevated. COVID-19 is negative. The cultures are negative at this time. The patient was also seen by Dr. Montiel. Past medical history reviewed. REVIEW OF SYSTEMS: HEENT: As mentioned earlier. CARDIOVASCULAR SYSTEM: No angina, palpitations. RESPIRATORY SYSTEM: As mentioned earlier. GI: As mentioned earlier. : No dysuria or retention. NERVOUS SYSTEM: No numbness, weakness. CURRENT MEDICATIONS: Reviewed. They include Tylenol, Rocephin, Dilaudid, Narcan. PHYSICAL EXAMINATION: Patient is alert, oriented x3. The pulse is 84, blood pressure 122/73, respirations 19, temperature 98.4, pulse ox 97% on room air. HEENT: Conjunctivae normal. NECK: No jugular venous distention. CARDIOVASCULAR SYSTEM: S1, S2 muffled. RESPIRATORY SYSTEM: Breath sounds diminished at the bases. No rhonchi. No crackles. ABDOMEN: Soft, non-tender. NERVOUS SYSTEM: No focal deficit. EXAMINATION OF THE JAW: Significant pain and swelling present. LABS: WBC 15.3. Other labs are noted. ASSESSMENT: 1. Acute right submandibular abscess with sepsis, status post incision and drainage. 2. History of carious tooth and tooth abscess. 3. Tachycardia. 4. History of asthma. 5. Increased white count with leukocytosis. 6. Elevated random glucose. 7. Increased AST, ALT. 8. History of degenerative joint disease. 9. History of cholecystectomy. 10.History of attention deficit disorder, attention deficit hyperactivity disorder. 11.History of continued ongoing nicotine dependence. 12.History of tetrahydrocannabinol. RECOMMENDATIONS AND DISCUSSION: In this 25-year-old gentleman who presented with multiple complex medical issues, we will monitor the patient closely, continue the current medications, continue with symptomatic treatment. Will continue the combination of Rocephin and Flagyl and continue to monitor. We will continue with Toradol and monitor labs closely. Otherwise, closely follow with Oral Surgery. We will cut down the IV fluids. Guarded prognosis. Further recommendations to follow. MMODL / IJN: [id number] /
[2020-08-11] MEDS: ACETAMINOPHEN TAB 325 MG TAB PO PRN (23:51)
[2020-08-12] MEDS: HYDROmorphone PCA 10 MG/50 ML BAG IV PRN (04:52)
[2020-08-12] MEDS: metroNIDAZOLE-NS PMX 500 MG in SALINE 1 100ML.BAG IVPB SCH ×4 (05:31→22:55)
[2020-08-12] MEDS: NICOTINE 21MG/24HR PATCH TRANSDERM SCH (07:08)
[2020-08-12] MEDS: HEPARIN SODIUM,PORCINE 5,000 UNIT/ML 1 ML VIAL SQ SCH ×3 (07:08→19:50)
[2020-08-12] MEDS: HYDROcodone/APAP 5-325MG 1 EACH TAB PO PRN ×4 (07:08→23:14)
[2020-08-12] MEDS: FAMOTIDINE 20 MG/2 ML VIAL IV SCH ×2 (07:09→19:50)
--- NOTE | 2020-08-12 08:17 | P.PN ---
Subjective Progress Note Date: 08/12/20 Principal diagnosis: Dental abscess related to the tooth #18 3 days postop incision and drainage of submandibular abscess and extraction of tooth #18 Tuesday afternoon patient had a incision and drainage 2 of the right neck minimal purulent discharge as well as incision and drainage of the right temporal space through an intraoral incision as well as surgical extraction of t ooth #18. Patient reported improvement immediately upon postop with his discomfort. up in chair watching TV and comfortable has stoped toradol per protocol. Objective - Vital Signs Vital signs: Vital Signs Temp 98.8 F 08/12/20 07:00 Pulse 95 08/12/20 07:00 Resp 18 08/12/20 07:00 BP 155/99 08/12/20 07:00 Pulse Ox 97 08/12/20 07:00 Intake & Output 08/11/20 08/12/20 08/12/20 18:59 06:59 18:59 Other: # Voids 1 2 - Exam On the patient's buccal space still appears swollen submandibular much less swollen. Opening slightly larger than yesterday. Intraoral drain seems intact no drainage noted. Tooth extraction site appears within normal limits from what I can see. Still limited exam. Extraoral drains are putting out appropriately. The drainage dressings from last night were observed and seen to have sero sanguineous and blood of approximately 10 mL total. - Labs CBC & Chem 7: 08/10/20 05:35 08/10/20 05:35 Labs: Microbiology - Last 24 Hours (Table) 08/09/20 16:00 Gram Stain - Preliminary Neck Wound Culture - Preliminary 08/09/20 16:00 Anaerobic Culture - Preliminary Neck 08/08/20 18:55 Blood Culture Gram Stain - Preliminary Blood Assessment and Plan Assessment: Dental abscess of the right temporal and right submandibular space appears to be improving with current treatment. Plan to keep drains in longer due to continued output. Plan: Patient reports feeling better continues to improve. Plan to replace toradol with Motrin 600 qid no more ice on face as this will decrease blood flow to area
[2020-08-12 09:14] LABS: Basophils # (A) 0.02 X 10*3/uL (0.00-0.10); Basophils % (A) 0.3 %; HCT 40.5 % (39.6-50.0); HGB 13.3 g/dL (13.0-17.0); Lymphocytes # (A) 2.02 X 10*3/uL (0.90-5.00); Lymphocytes % (A) 30.8 %; MCHC 32.8 g/dL (32.0-37.0); MCV 88.4 fL (80.0-97.0); Mean Platelet Volume 9.6 fL (9.5-12.2); Monocytes # (A) 0.58 X 10*3/uL (0.20-1.00); Monocytes % (A) 8.8 %; Neutrophils # (A) 3.69 X 10*3/uL (1.80-7.70); Neutrophils % (A) 56.3 %; Platelet Count 342 X 10*3/uL (140-440); RBC 4.58 X 10*6/uL (4.40-5.60); RDW 13.5 % (11.5-14.5); WBC 6.56 X 10*3/uL (4.50-10.00)
[2020-08-12] MEDS: IBUPROFEN 600 MG TAB PO SCH ×4 (09:38→22:56)
[2020-08-12 09:47] LABS: African American GFR (CKD) 136.1 (60.0-200.0); Albumin 4.4 g/dL (3.80-4.90); Albumin/Globulin Ratio 1.91 (1.60-3.17); Anion Gap 9.5 mmol/L (4.00-12.00); BUN/Creat Ratio 13.33 Ratio (12.00-20.00); Calcium 9.3 mg/dL (8.7-10.3); Carbon Dioxide 27.5 mmol/L (21.6-31.8); Globulin 2.3 g/dL (1.6-3.3); Non-African American GFR(CKD) 117.5 (60.0-200.0); Potassium 4.5 mmol/L (3.5-5.5); Total Bilirubin 0.4 mg/dL (0.2-1.2); Total Protein 6.7 g/dL (6.2-8.2)
--- NOTE | 2020-08-12 16:03 | PN ---
PROGRESS NOTE DATE OF SERVICE: 08/12/2020 This 25-year-old gentleman admitted with significant sepsis and submandibular abscess is being closely monitored at this time. Dr. Montiel has performed incision and drainage for dental abscess. The blood cultures showing anaerobic Gram-positive cocci. The patient is being closely monitored. Past medical history reviewed. REVIEW OF SYSTEMS: ENT: As mentioned earlier. CARDIOVASCULAR SYSTEM: No angina, palpitations. RESPIRATORY SYSTEM: As mentioned earlier. GI: As mentioned earlier. NERVOUS SYSTEM: No numbness, weakness. CURRENT MEDICATIONS: Reviewed. They include [place], Tylenol, Rocephin, heparin, Dilaudid, Motrin, Flagyl. PHYSICAL EXAMINATION: Patient is alert and oriented x3. Pulse 95, blood pressure 155/99, respiration 18, temperature 98.8, pulse ox 97% on room air. HEENT: Conjunctivae normal. Examination of the face: Significant swelling of the right side of the face still present. NECK: No jugular venous distention. CARDIOVASCULAR SYSTEM: S1, S2 muffled. RESPIRATORY SYSTEM: Breath sounds diminished at the bases. A few scattered rhonchi. ABDOMEN: Soft, non-tender. NERVOUS SYSTEM: No focal deficit. LABS: WBC 6.56 and AST is 111, ALT is 169. ASSESSMENT: 1. Acute right submandibular abscess with sepsis, status post incision and drainage with dental abscess. 2. Anaerobic Gram-positive cocci sepsis. 3. History of carious teeth and tooth abscess. 4. Tachycardia. 5. History of asthma. 6. Increased white count and leukocytosis and elevated random glucose. 7. Elevated AST, ALT. 8. History of degenerative joint disease. 9. History of cholecystectomy. 10.History of attention deficit disorder, attention deficit hyperactivity disorder. 11.History of continued ongoing nicotine dependence. 12.History of tetrahydrocannabinol. RECOMMENDATIONS AND DISCUSSION: I recommend to continue current medications, continue with the monitoring, symptomatic treatment. Infectious disease evaluation. Repeat cultures. Continue the antibiotics. Guarded prognosis because of multiple complex medical issues. Further recommendations to follow. The patient is ALLERGIC TO PENICILLIN. MMODL / IJN: [id number] /
[2020-08-12] MEDS: ALPRAZolam 0.25 MG TAB PO PRN (23:14)
[2020-08-13] MEDS: SODIUM CHLORIDE 0.9% 1,000 ML IV SCH (02:39)
[2020-08-13] MEDS: metroNIDAZOLE-NS PMX 500 MG in SALINE 1 100ML.BAG IVPB SCH ×3 (05:35→17:20)
--- NOTE | 2020-08-13 06:28 | CONS ---
CONSULTATION DATE OF SERVICE: 08/12/2020 REASON FOR CONSULTATION: 1. Right submandibular abscess. 2. Bacteremia. HISTORY OF PRESENT ILLNESS: The patient is a 25-year-old male who has been dealing with a painful right lower jaw tooth for more than a month. Has been treated with multiple courses of antibiotic in the outpatient setting without any improvement. The patient presented to [facility] on the for increasing pain, swelling and redness to the right lower jaw area. Symptoms has been getting worse for the last few days before presentation to the hospital. The patient describes the pain to be throbbing, intensity almost 7-8/10 with associated swelling and redness but no drainage. Patient on presentation to the hospital did have a fever of 101.5 degrees Fahrenheit. The patient did have a CT of the facial area with concern for submandibular abscess. The patient did have white count of 12.5 on admission, which was up to 15.13 on the but subsequently normalized. The patient was evaluated by Oral Surgery and the patient is status post extraction of tooth #18 and drainage of the submandibular abscess. Local cultures currently pending. Patient has been treated with Rocephin and Flagyl because of PENICILLIN allergy with blood cultures currently positive with anaerobic gram- positive cocci. Infectious Disease consultation for recommendation for discharge antibiotics. REVIEW OF SYSTEMS: Positive points have been mentioned in HPI. Rest of the systems are negative. PAST MEDICAL HISTORY: Asthma and osteoarthritis. PAST SURGICAL HISTORY: Cholecystectomy. SOCIAL HISTORY: Current everyday smoker. Occasionally drinks. Admits to marijuana use. FAMILY HISTORY: No pertinent findings noticed. ALLERGIES: MELOXICAM AND PENICILLIN. MEDICATIONS: The patient is currently on Tylenol, [place], Xanax, Rocephin 2 grams daily, Pepcid, heparin, Dilaudid, Flagyl, Narcan, nicotine patch, Restoril and IV fluid. PHYSICAL EXAMINATION: Blood pressure 137/87 with a pulse of 87, temperature 98.3, he is 97% on room air. GENERAL DESCRIPTION: The patient is a middle-aged male up in the chair in no distress. HEENT: Examination shows no pallor or scleral icterus. Right lower jaw area did have some swelling and redness, minimal drainage on the dressing. NECK: Trachea central, no thyromegaly. LUNGS: Unlabored breathing, clear to auscultation anteriorly. No wheeze or crackles. HEART: S1, S2. Regular rate and rhythm. ABDOMEN: Soft, no tenderness. No guarding or rigidity. EXTREMITIES: No edema of the feet. SKIN: No rash or mass palpable. NEUROLOGICAL: Patient is awake, alert, oriented times three. Mood and affect normal. LABS: Hemoglobin 13.1 and on admission was 12.5, repeat is 6.58. BUN of 12, creatinine 0.9. Blood culture anaerobic gram-positive cocci. Local cultures currently pending. DIAGNOSTIC IMPRESSION: 1. Patient with right submandibular abscess from infected tooth #18 in this patient who is status post extraction of the infected tooth and drainage of the abscess with local cultures pending. 2. Patient with anaerobic gram-positive bacteremia, source is right submental abscess secondary to the dental infection. 3. Patient with PENICILLIN ALLERGY and that will limit the number of antibiotics safe to use. PLAN: 1. Blood cultures will be repeated to document clearance of bacteremia. 2. Rocephin 2 grams daily and Flagyl should provide adequate coverage while waiting for the culture to finalize. 3. We will follow on the clinical condition and culture to further adjust medication if needed. Thank you for this consultation. Will follow this patient along with you. MMODL / IJN: [id number] /
[2020-08-13] MEDS: IBUPROFEN 600 MG TAB PO SCH ×4 (08:11→22:30)
[2020-08-13] MEDS: FAMOTIDINE 20 MG/2 ML VIAL IV SCH ×2 (08:12→22:30)
[2020-08-13] MEDS: NICOTINE 21MG/24HR PATCH TRANSDERM SCH (08:12)
[2020-08-13] MEDS: HEPARIN SODIUM,PORCINE 5,000 UNIT/ML 1 ML VIAL SQ SCH ×2 (08:12→20:43)
[2020-08-13] MEDS: HYDROcodone/APAP 5-325MG 1 EACH TAB PO PRN ×2 (08:20→13:07)
[2020-08-13 10:37] LABS: Basophils # (A) 0.03 X 10*3/uL (0.00-0.10); Basophils % (A) 0.5 %; Eosinophils # (A) 0.16 X 10*3/uL (0.04-0.35); Eosinophils % (A) 2.8 %; HCT 44.2 % (39.6-50.0); HGB 14.4 g/dL (13.0-17.0); Lymphocytes # (A) 1.68 X 10*3/uL (0.90-5.00); Lymphocytes % (A) 29.5 %; MCHC 32.6 g/dL (32.0-37.0); MCV 88.9 fL (80.0-97.0); Mean Platelet Volume 9.5 fL (9.5-12.2); Monocytes % (A) 8.8 %; Neutrophils # (A) 3.18 X 10*3/uL (1.80-7.70); Neutrophils % (A) 55.9 %; Platelet Count 364 X 10*3/uL (140-440); RBC 4.97 X 10*6/uL (4.40-5.60); RDW 13.5 % (11.5-14.5); WBC 5.69 X 10*3/uL (4.50-10.00)
[2020-08-13 11:00] LABS: African American GFR (CKD) 142.9 (60.0-200.0); Albumin 4.2 g/dL (3.80-4.90); Albumin/Globulin Ratio 1.27 (1.60-3.17); Anion Gap 9.7 mmol/L (4.00-12.00); BUN/Creat Ratio 17.5 Ratio (12.00-20.00); C Reactive Protein 5.9 mg/dL (0.0-0.8); Calcium 9.8 mg/dL (8.7-10.3); Carbon Dioxide 25.3 mmol/L (21.6-31.8); Globulin 3.3 g/dL (1.6-3.3); Non-African American GFR(CKD) 123.3 (60.0-200.0); Potassium 4.7 mmol/L (3.5-5.5); Total Bilirubin 0.5 mg/dL (0.3-1.2); Total Protein 7.5 g/dL (6.2-8.2)
--- NOTE | 2020-08-13 11:13 | P.PN ---
Subjective Progress Note Date: 08/13/20 Principal diagnosis: Dental abscess related to the tooth #18 4 days postop incision and drainage of submandibular abscess and extraction of tooth #18 Tuesday afternoon patient had a incision and drainage 2 of the right neck minimal purulent discharge as well as incision and drainage of the right temporal space through an intraoral incision as well as surgical extraction of t ooth #18. Patient reported improvement immediately upon postop with his discomfort. Today feels much better. Objective - Vital Signs Vital signs: Vital Signs Temp 98.1 F 08/13/20 07:00 Pulse 79 08/13/20 07:00 Resp 16 08/13/20 08:00 BP 127/84 08/13/20 07:00 Pulse Ox 98 08/13/20 07:00 Intake & Output 08/12/20 08/13/20 08/13/20 18:59 06:59 18:59 Other: # Voids 1 - Exam On the patient's buccal space still appears swollen submandibular much less swollen. Opening slightly larger than yesterday. Intraoral drain seems intact no drainage noted. Tooth extraction site appears within normal limits from what I can see. Still limited exam. Extraoral drains are putting out appropriately. The drainage dressings from last night were observed and seen to have sero sanguineous and blood of approximately 10 mL total. Today the patient is up in his chair resting comfortably watching TV visibly less swollen than the day before. Again his is opening is improved but again the intraoral drain does not appear to be draining. Studied the dressing from last night and the anterior extraoral drain appears to be putting out more fluid. Approximately 5-10 mL of mostly purulence the very foul oder per patient. The posterior external drain appears to have stopped draining. - Labs CBC & Chem 7: 08/13/20 06:21 08/13/20 06:21 Labs: Abnormal Lab Results - Last 24 Hours (Table) 08/13/20 08/13/20 Range/Units 06: 06:21 Immature Gran # 0.14 H (0.00-0.04) X 10*3/uL AST 126 H (14-35) U/L ALT 197 H (10-49) U/L Alkaline Phosphatase 163 H (41-126) U/L C-Reactive Protein 5.9 H (0.0-0.8) mg/dL Albumin/Globulin Ratio 1.27 L (1.60-3.17) g/dL Microbiology - Last 24 Hours (Table) 08/08/20 18:55 Blood Culture Gram Stain - Preliminary Blood Blood Culture - Preliminary Anaerobic Gram Positive Cocci 08/08/20 19:09 Blood Culture Gram Stain - Preliminary Blood Blood Culture - Preliminary Anaerobic Gram Positive Cocci 08/09/20 16:00 Gram Stain - Preliminary Neck Wound Culture - Preliminary Still awaiting anaerobic cultures in the wound. Assessment and Plan Assessment: Dental abscess of the right temporal and right submandibular space appears to be improving with current treatment. Plan: Patient continues to improve. Have removed the posterior extraoral drain in the intraoral drain as there is no output. The anterior extraoral drain is left in place. Encouraged patient to continue to open his mouth stretch the muscles in an effort to increase drainage.
[2020-08-13] MEDS: AMPHETAMINE PO SCH (12:50)
[2020-08-13] MEDS: DEXTROAMPHETAMINE PO SCH (12:50)
[2020-08-13] MEDS: ALPRAZolam 0.25 MG TAB PO PRN ×2 (13:10→19:25)
--- NOTE | 2020-08-13 14:15 | P.PN ---
Subjective Progress Note Date: 08/13/20 HISTORY OF PRESENT ILLNESS This is a 25-year-old male patient seen for right submandibular abscess and nik teremia. Patient has undergone multiple courses of antibiotics in the outpatient setting without improvement. He presented on every with increasing pain swelling and redness to the right lower jaw area. He also had fever and significant pain. CAT scan of the facial area was concerning for s ubmandibular abscess. Patient is status post extraction of tooth #18 and drainage of submandibular abscess. Patient has been on Rocephin and Flagyl because of penicillin ALLERGY. Blood culture is positive for anaerobic gram- positive cocci. Waiting for repeat blood culture which is status received to be cleared prior to midline placement. Patient has been afebrile, heart rate 79, blood pressure 127/84, pulse ox 90% on room air. Leukocytosis resolved with WBC 5.6. Creatinine 0.8. PHYSICAL EXAMINATION Gen: This is a 25-year-old male patient. He is resting in bed and appears to be comfortable. No acute distress. HEENT: Head is atraumatic, normocephalic. Pupils equal, round. Sclerae is anicteric. Mild swelling to the right lower jaw. NECK: Supple. No JVD. No lymphadenopathy. LUNGS: Clear to auscultation. No wheezes or rhonchi. No intercostal retractions. HEART: Regular rate and rhythm. ABDOMEN: Soft. No masses. No tenderness. EXTREMITIES: No pedal edema. NEUROLOGICAL: Patient is awake, alert and oriented x3. ASSESSMENT Right submandibular abscess from infected tooth #18 status post extraction of infected tooth and drainage of abscess Anaerobic gram-positive cocci bacteremia PLAN Continue Rocephin 2 g IV piggyback daily and Flagyl 500 mg 3 times daily Prescriptions provided for Rocephin 2 g IV piggyback daily for 10 days to onsite case manager Prescription for Flagyl 500 mg oral every 8 hours times 10 day course, sent to pharmacy Midline insertion once repeat blood culture is without growth, currently status received Further recommendations as patient progresses. The above dictated assessment and findings were discussed with Dr. Jeffery. The impression and plan of care have been directed as dictated. Елена Stafford nurse practitioner acting as scribe for Dr. Jeffery. Objective - Vital Signs Vital signs: Vital Signs Temp 98.1 F 08/13/20 07:00 Pulse 79 08/13/20 07:00 Resp 16 08/13/20 07:00 BP 127/84 08/13/20 07:00 Pulse Ox 98 08/13/20 07:00 Intake & Output 08/12/20 08/13/20 08/13/20 18:59 06:59 18:59 Other: # Voids 1 - Labs CBC & Chem 7: 08/13/20 06:21 08/13/20 06:21 Labs: Microbiology - Last 24 Hours (Table) 08/08/20 18:55 Blood Culture Gram Stain - Preliminary Blood Blood Culture - Preliminary Anaerobic Gram Positive Cocci 08/08/20 19:09 Blood Culture Gram Stain - Preliminary Blood Blood Culture - Preliminary Anaerobic Gram Positive Cocci 08/09/20 16:00 Gram Stain - Preliminary Neck Wound Culture - Preliminary
[2020-08-13] MEDS ORDERED: HYDROcodone/APAP 7.5-325MG 1 EACH TAB PO PRN (16:36)
--- NOTE | 2020-08-13 16:36 | PN ---
PROGRESS NOTE DATE OF SERVICE: 08/13/2020. This 25-year-old gentleman who was admitted with acute right submandibular abscess with sepsis had incision and drainage of the dental abscess. The patient also had anaerobic gram-positive cocci, sepsis also. The final ID is pending. No chest pain. No palpitations. The patient has swelling . PICC line and outpatient antibiotics being plan by Dr. Jeffery. PHYSICAL EXAMINATION: The patient is alert and oriented x3. Pulse 92, blood pressure 127/89, respiration 16, temperature 98.1, pulse ox 97% on room air. HEENT: Conjunctivae normal. NECK: No jugular venous distention. CARDIOVASCULAR: S1, S2 muffled. RESPIRATORY: Breath sounds diminished at the bases. No rhonchi, no crackles. ABDOMEN: Soft. NERVOUS SYSTEM: No focal deficits. Examination of face significant swelling present. Drains are being removed. LABS: CBC within normal limits. LFTs, AST is 126, ALT is 197. Albumin noted. ASSESSMENT: 1. Acute right submandibular abscess with sepsis, status post incision and drainage with dental abscess. 2. Anaerobic Gram-positive cocci sepsis. 3. History of carious teeth and tooth abscess. 4. Elevated AST, ALT. 5. Tachycardia. 6. History of asthma. 7. Increased WBC and leukocytosis with secondary to sepsis. 8. Elevated random glucose. 9. History of degenerative joint disease. 10.History of cholecystectomy. 11.History of attention deficit disorder, attention deficit hyperactivity disorder. 12.History of continued ongoing nicotine dependence. 13.History of THC. RECOMMENDATIONS AND DISCUSSION: I recommend to continue current medications and continue symptomatic treatment. Continue with IV antibiotics. I would also recommend followup of the LFTs. Otherwise, closely follow with Oral Surgery and as well as Infectious Disease. Prognosis guarded because of multiple complex medical issues as mentioned earlier. Continue with the Adderall. Further recommendations to follow. MMODL / IJN: [id number] / [id number]
[2020-08-13] MEDS: HYDROcodone/APAP 7.5-325MG 1 EACH TAB PO PRN (18:06)
[2020-08-14] MEDS: HYDROcodone/APAP 7.5-325MG 1 EACH TAB PO PRN ×3 (00:04→11:45)
[2020-08-14] MEDS: SODIUM CHLORIDE 0.9% 1,000 ML IV SCH (00:06)
[2020-08-14] MEDS: metroNIDAZOLE-NS PMX 500 MG in SALINE 1 100ML.BAG IVPB SCH ×3 (00:08→12:08)
[2020-08-14 07:29] VITALS: RESP 16
[2020-08-14] MEDS: IBUPROFEN 600 MG TAB PO SCH ×2 (07:46→12:56)
[2020-08-14] MEDS: NICOTINE 21MG/24HR PATCH TRANSDERM SCH (07:46)
[2020-08-14] MEDS: FAMOTIDINE 20 MG/2 ML VIAL IV SCH (07:49)
[2020-08-14] MEDS: HEPARIN SODIUM,PORCINE 5,000 UNIT/ML 1 ML VIAL SQ SCH (07:50)
[2020-08-14] MEDS: AMPHETAMINE PO SCH (08:43)
[2020-08-14] MEDS: DEXTROAMPHETAMINE PO SCH (08:43)
[2020-08-14 09:07] LABS: Basophils # (A) 0.06 X 10*3/uL (0.00-0.10); Basophils % (A) 0.9 %; Eosinophils # (A) 0.15 X 10*3/uL (0.04-0.35); Eosinophils % (A) 2.2 %; HCT 43.6 % (39.6-50.0); HGB 14.3 g/dL (13.0-17.0); Lymphocytes # (A) 2.02 X 10*3/uL (0.90-5.00); Lymphocytes % (A) 30.1 %; MCH 28.9 pg (27.0-32.0); MCHC 32.8 g/dL (32.0-37.0); MCV 88.1 fL (80.0-97.0); Mean Platelet Volume 9.4 fL (9.5-12.2); Monocytes # (A) 0.54 X 10*3/uL (0.20-1.00); Neutrophils # (A) 3.66 X 10*3/uL (1.80-7.70); Neutrophils % (A) 54.5 %; Platelet Count 362 X 10*3/uL (140-440); RBC 4.95 X 10*6/uL (4.40-5.60); RDW 13.3 % (11.5-14.5); WBC 6.72 X 10*3/uL (4.50-10.00)
[2020-08-14 10:01] LABS: African American GFR (CKD) 142.9 (60.0-200.0); Albumin 4.5 g/dL (3.80-4.90); Albumin/Globulin Ratio 2.05 (1.60-3.17); Anion Gap 11.3 mmol/L (4.00-12.00); BUN/Creat Ratio 18.75 Ratio (12.00-20.00); Calcium 9.6 mg/dL (8.7-10.3); Carbon Dioxide 21.7 mmol/L (21.6-31.8); Globulin 2.2 g/dL (1.6-3.3); Non-African American GFR(CKD) 123.3 (60.0-200.0); Potassium 4.9 mmol/L (3.5-5.5); Total Bilirubin 0.4 mg/dL (0.2-1.2); Total Protein 6.7 g/dL (6.2-8.2)
--- NOTE | 2020-08-14 13:51 | P.PN ---
Subjective Progress Note Date: 08/14/20 Principal diagnosis: Dental abscess related to the tooth #18 5 days postop incision and drainage of submandibular abscess and extraction of tooth #18 Tuesday afternoon patient had a incision and drainage 2 of the right neck minimal purulent discharge as well as incision and drainage of the right temporal space through an intraoral incision as well as surgical extraction of t ooth #18. Patient reported improvement immediately upon postop with his discomfort. Has resonded well t cospital course and contunes to et yellow pus fron neck drain Objective - Vital Signs Vital signs: Vital Signs Temp 98.4 F 08/14/20 07:00 Pulse 86 08/14/20 07:00 Resp 16 08/14/20 07:00 BP 115/86 08/14/20 07:00 Pulse Ox 97 08/14/20 07:00 Intake & Output 08/13/20 08/14/20 08/14/20 18:59 06:59 18:59 Intake Total 300 800 Balance 300 800 Intake: Intake, IV Titration 320 Amount Sodium Chloride 0.9% 1, 220 000 ml @ 20 mls/hr IV . Q24H SHAAN Rx#:[id number] metroNIDAZOLE-NS PMX 500 100 mg In Saline 1 100ml.bag @ 100 mls/hr IVPB Q6HR SHAAN Rx#:[id number] Oral 300 480 Other: # Voids 1 3 - Exam Patient is standing dressed bags packed desire desires discharge. Reports continued discharge from drain tube overnight but the neck swelling continues to improve. Mouth opening is improved to approximately 20 mm. Dressing neck was just changed our ago the patient reports any still has a quarter-sized area of yellow pus. - Labs CBC & Chem 7: 08/14/20 05:19 08/14/20 05:19 Labs: Abnormal Lab Results - Last 24 Hours (Table) 08/14/20 08/14/20 Range/Units 05:19 05:19 MPV 9.4 L (9.5-12.2) fL Immature Gran # 0.29 H (0.00-0.04) X 10*3/uL AST 139 H (14-35) U/L ALT 219 H (10-49) U/L Alkaline Phosphatase 150 H (41-126) U/L Microbiology - Last 24 Hours (Table) 08/13/20 06:21 Blood Culture - Preliminary Blood No Growth after 24 hours 08/12/20 15:13 Blood Culture - Preliminary Blood No Growth after 24 hours 08/08/20 18:55 Blood Culture Gram Stain - Final Blood Blood Culture - Final Anaerobic Gram Positive Cocci 08/08/20 19:09 Blood Culture Gram Stain - Final Blood Blood Culture - Final Anaerobic Gram Positive Cocci 08/09/20 16:00 Gram Stain - Final Neck Wound Culture - Final Assessment and Plan Assessment: Dental abscess of the right temporal and right submandibular space appears to be improving with current treatment. Plan: Patient has slow improvement. Meets discharge criteria. Patient strongly desires discharge. Patient's hospital course has been good but slow and I suspect the drain will stay in for another 2-4 days. Recommend patient follow- up with me tomorrow in the office and Tuesday in the office.
--- NOTE | 2020-08-14 13:56 | P.DS ---
Providers Date of admission: 08/11/20 09:08 Expected date of discharge: 08/14/20 Attending physician: Abhijit Botello MD Consults: 08/08/20 20:53 Consult Physician Urgent Consulting Provider: Ethan Garrett Consult Reason/Comments: Submandibular abscess Do you want consulting provider notified?: Yes 08/09/20 10:10 Consult Physician Stat Consulting Provider: Wilder Montiel Consult Reason/Comments: tooth abcsess Do you want consulting provider notified?: Yes 08/12/20 12:42 Consult Physician Routine Consulting Provider: Jay Jeffery Consult Reason/Comments: antibiotic management Do you want consulting provider notified?: Yes Primary care physician: Dayanna Combs Hospital Course: Final diagnosis Acute right submandibular abscess with sepsis, status post incision and drainage with dental abscess Anaerobic gram-positive cocci sepsis History of carious teeth and tooth abscess Elevated AST, ALT Tachycardia history of asthma Increased white blood count leukocytosis with secondary to sepsis elevated random glucose history of degenerative joint disease History of cholecystectomy history of attention deficit disorder, attention deficit hyperactivity disorder History of continued ongoing nicotine dependence History of THC Discharge disposition Patient is being discharged in a stable condition with guarded prognosis to home and will continue with home care in the outpatient setting. Patient will follow-up with Dr. Combs in the outpatient setting upon discharge. Patient also instructed to follow-up with infectious disease in 1-2 weeks. Patient to continue following closely with his dentist as well. Patient will continue on IV antibiotics in the form of ceftriaxone 2 g daily for the next 10 days along with oral Flagyl 500 mg 3 times daily for the next 10 days. Total time taken is greater than 35 minutes. Hospital course This is a 25-year-old male who was recently admitted with acute right submandibular abscess with sepsis and was being closely monitored. Patient was seen and evaluated by oral surgery Dr. Montiel and underwent incision and drainage and had drains placed. Infectious disease also following as patient's initial blood cultures showing gram-positive cocci with most recent blood cultures being negative. Patient is receiving a midline and will continue with IV ceftriaxone 2 g daily for the next 10 days along with oral Flagyl 500 mg 3 times daily for the next 10 days. Patient will follow-up closely with oral surgery along with infectious disease in the outpatient setting. Case management has arranged for in-home IV antibiotic infusions and Homecare. Patient instructed to continue with a soft diet and avoid tobacco use. Currently no reports of chest pain, shortness of breath, or palpitations. Patient is afebrile. No reports of nausea or vomiting and patient is tolerating diet. Patient will be going home today. On exam vital signs are stable. Cardio S1, S2 are muffled. Respiratory system shows diminished breath sounds at the bases with no wheezing or rhonchi noted. Abdomen is soft and nontender. Nervous system shows no focal deficits. Please refer to medication reconciliation sheet for a list of medications. Patient Condition at Discharge: Stable Plan - Discharge Summary Discharge Rx Participant: Yes New Discharge Prescriptions: New metroNIDAZOLE [Flagyl] 500 mg PO TID #30 tab cefTRIAXone [Rocephin] 2 gm IVPB Q24H #10 bag HYDROcodone/APAP 7.5-325MG [[place] 7.5-325] 2 each PO Q6H PRN #12 tab PRN Reason: Pain Continue Dextroamphetamine/Amphetamine [Dextroamphetamine/Amphetamine ER 30 mg Cap] 30 mg PO DAILY Ibuprofen [Motrin] 800 mg PO TID PRN #30 tab PRN Reason: Pain Discontinued Clindamycin HCl 300 mg PO Q6HR #40 cap Discharge Medication List Dextroamphetamine/Amphetamine [Dextroamphetamine/Amphetamine ER 30 mg Cap] 30 mg PO DAILY 08/13/20 [History] cefTRIAXone [Rocephin] 2 gm IVPB Q24H #10 bag 08/13/20 [Rx] metroNIDAZOLE [Flagyl] 500 mg PO TID #30 tab 08/13/20 [Rx] HYDROcodone/APAP 7.5-325MG [[place] 7.5-325] 2 each PO Q6H PRN #12 tab 08/14/20 [Rx] Ibuprofen [Motrin] 800 mg PO TID PRN #30 tab 08/14/20 [Rx] Follow up Appointment(s)/Referral(s): Dayanna Combs DO [Primary Care Provider] - 1-2 days [facility], [NON-STAFF] - ([facility] will call you to coordinate your first visit. They will begin teaching and IV antibiotic infusions on: 08/15/20.) [facility], [REFERRING] - ([facility] will call before delivering IV antibiotics. They will deliver on: 08/14/20.) Jay Jeffery MD [STAFF PHYSICIAN] - 1 Week Ambulatory/Diagnostic Orders: Basic Metabolic Panel [LAB.AMB] Location: None Selected C Reactive Protein [LAB.AMB] Location: None Selected Complete Blood Count w/diff [LAB.AMB] Location: None Selected Erythrocyte Sedimentation Rate [LAB.AMB] Location: None Selected Activity/Diet/Wound Care/Special Instructions: Activity limited until follow up follow up with infectious disease outpatient follow up with dentist upon discharge continue with antibiotics until finished continue current diet avoid tobacco use
--- NOTE | 2020-08-14 14:17 | PN ---
PROGRESS NOTE DATE OF SERVICE: 08/14/2020 REASON FOR FOLLOWUP: Right submandibular abscess from infected tooth. INTERVAL HISTORY: The patient is currently afebrile. Patient is breathing comfortably. Patient denies having any chest pain or any cough. Overall pain and discomfort to the right lower jaw has improved. No nausea, vomiting or diarrhea. PHYSICAL EXAMINATION: Blood pressure 115/86, pulse of 86, temperature 98.4. He is 97% on room air. General description is a middle-aged male up in the chair in no distress. HEENT EXAMINATION: Right lower jaw swelling has improved. LUNGS: Unlabored breathing, clear to auscultation. HEART: S1, S2. Regular rate and rhythm. ABDOMEN: Soft, no tenderness. LABS: Hemoglobin is 14.3, white count 6.72, creatinine 0.8. Blood culture repeat has been negative. DIAGNOSTIC IMPRESSION AND PLAN: Patient with right submandibular abscess status post drainage with removal of infected tooth. Blood culture with anaerobic gram-positive cocci. Wound culture negative. He will finish therapy with Rocephin 2 grams daily and oral Flagyl for a total of 2 weeks and close outpatient followup. MMODL / IJN: [id number] /
[2020-08-14 15:27] VITALS: BP 115/86; PULSE 86; TEMP 98.4
[2020-08-14] MEDS ORDERED: metroNIDAZOLE 500 MG TAB PO SCH (18:00)
[2020-08-14] MEDS ORDERED: FAMOTIDINE 20 MG TAB PO SCH (21:00)
== END 2020-08-14 16:11 | disposition home health service (06) | DRG 872 ==
LOC: EC 18:14 → 6NMEDSUR 20:53 → 4SSUR 08-09 11:17 → OBSVTOIN 08-11 09:08
PROVIDERS: ADMIT Internal Medicine; ATTEND Internal Medicine
DX: A41.4 Sepsis due to anaerobes (principal); K12.2 Cellulitis and abscess of mouth; L03.211 Cellulitis of face; L02.01 Cutaneous abscess of face; S02.5XXA Fracture of tooth (traumatic), initial encounter for closed fracture; J45.909 Unspecified asthma, uncomplicated; F90.9 Attention-deficit hyperactivity disorder, unspecified type; F17.210 Nicotine dependence, cigarettes, uncomplicated; Z20.822 Contact with and (suspected) exposure to COVID-19; K04.7 Periapical abscess without sinus; K02.9 Dental caries, unspecified; K59.00 Constipation, unspecified; M47.9 Spondylosis, unspecified; F98.8 Other specified behavioral and emotional disorders with onset usually occurring in childhood and adolescence; Z71.6 Tobacco abuse counseling; Z79.899 Other long term (current) drug therapy; Z90.49 Acquired absence of other specified parts of digestive tract; Z87.19 Personal history of other diseases of the digestive system; Z98.890 Other specified postprocedural states; Z88.6 Allergy status to analgesic agent; Z88.0 Allergy status to penicillin
CPT/HCPCS: 36410; 36415; 70487; 76937; 80048; 80053; 83605; 85025; 85027; 86140; 87040; 87070; 87075; 87205; 87635; 96361; 96365; 96375; 96376; 99285